=== PATIENT | male | born 1975 | race Caucasian/White ===

== ENCOUNTER 2016-07-14 23:56 | Observation (INO) ==
--- NOTE | 2016-07-15 00:20 | Emergency Department Note ---
Disposition Clinical Impression: Suicidal ideation, Auditory hallucinations, Visual hallucinations Disposition: Still a Patient Condition: Good Referrals: Teresa Powell DO [Partnered Physician] - Forms: ED Satisfaction Letter Psych HPI - General Chief Complaint: ED Psychiatric Symptoms Stated Complaint: SI Time Seen by Provider: 07/14/16 23:59 Source: patient Mode of arrival: EMS Limitations: no limitations Nursing Notes Reviewed: Yes Vital Signs Reviewed: Yes - History of Present Illness HPI Narrative: 40-year-old male presents to the ER via EMS due to suicide attempt. Pt complaint: suicidal ideation, other (Attempted suicide attempt) Onset (ago): hour(s) (10 PM) History of similar episodes: Yes Improves with: none Worsens with: none Alleged intoxication: No Associated Psychiatric Symptoms: depression, suicidal ideation, auditory hallucinations, visual hallucinations Associated symptoms: Denies: shortness of breath, nausea, vomiting Traumatic symptoms: denies traumatic injury Treatments prior to arrival: none Self harm or harm to others: admits thoughts of self harm, has plan (Took pills earlier today), denies thoughts of harming self/others, intentional overdose - Related Data Home Medications Medication Instructions Recorded Confirmed ClonazePAM [Klonopin] 1 mg PO BID 12/14/15 12/14/15 Fluticasone Propionate Nasal 1 spray NS DAILY 12/14/15 12/14/15 [Flonase] Gabapentin [Neurontin] 600 mg PO TID 12/14/15 12/14/15 Methylphenidate HCl [Ritalin] 20 mg PO TID 12/14/15 12/14/15 Metoprolol [Lopressor] 25 mg PO BID 12/14/15 12/14/15 Omeprazole [PriLOSEC] 40 mg PO DAILY 12/14/15 12/14/15 TraMADol [Ultram] 50 mg PO Q4-6H PRN 12/14/15 12/14/15 TraZODone [TraZODone] 50 mg PO HS 12/14/15 12/14/15 Ziprasidone [Geodon] 60 mg PO BID 12/14/15 12/14/15 Allergies Allergy/AdvReac Type Severity Reaction Status Date / Time No Known Allergies Allergy Verified 12/14/15 09:17 All systems ED: reviewed and negative except as stated. Constitutional: Denies: fever Cardiovascular: Denies: chest pain Respiratory: Denies: cough, dyspnea Gastrointestinal: Denies: abdominal pain, nausea, vomiting, diarrhea Neurological: Reports: headache Psychiatric: Reports: depression, suicidal thoughts, auditory hallucinations, visual hallucinations Past Medical History - Past Medical History Attestation: Yes The following information was validated with the patient. Source: patient Medical history: Reports: asthma, hypertension Surgical history: Reports: non-contributory Psychiatric history: Reports: anxiety, ADHD, bipolar, depression - Social History Smoking Status: Current every day smoker Smokeless Tobacco Status: No Alcohol use: Reports: occasionally Drug use: Reports: none Physical Exam - General Limitations: no limitations General appearance: alert, in no apparent distress - Head Head exam: atraumatic, normocephalic, normal inspection - Eye Eye exam: Present: normal appearance, EOMI, mydriasis - ENT ENT exam: normal exam - Neck Neck exam: Present: normal inspection - Chest Chest inspection: Present: normal inspection, symmetric chest wall rise - Respiratory Respiratory exam: Present: normal lung sounds bilaterally - Cardiovascular Cardiovascular exam: Present: regular rate, normal rhythm, normal heart sounds - Abdominal Exam Abdominal exam: Present: soft, Non-Tender. Absent: tenderness - Extremities Exam Extremities exam: Present: normal inspection, full ROM - Expanded Lower Extremity Exam Hip/Pelvis exam: Present: normal inspection, full ROM Upper leg exam: Present: normal inspection, full ROM Knee exam: Present: normal inspection, full ROM Lower leg exam: Present: normal inspection, full ROM Ankle exam: Present: normal inspection, full ROM Foot/toe exam: Present: normal inspection, full ROM - Neurological Exam Neurological exam: Present: alert, oriented X3, normal gait. Absent: motor sensory deficit - Psychiatric Psychiatric exam: Present: normal affect, depressed, suicidal ideation, other ( Thought blocking) - Skin Skin exam: Present: warm, intact, normal color Course Course Narrative: 40-year-old male history of bipolar who presents to the ER via EMS due to suicide attempt. Patient states that around 10 PM he intentionally ingested a handful of Klonopin and drank 7-10 shots of liquor. Patient reports a history of previous suicide attempt in the past. He states that his parents called 911. He does report having auditory and visual hallucinations. States that he has been evaluated by one [facility] in the past. He denies any coingestions. He reports continued thoughts of self-harm. No other complaints. Plan for patient his EKG, basic labs, TSH, urinalysis and urine drug screen. After medical clearance will be evaluated by [facility]. - Reevaluation(s) Reevaluation #1: Resting comfortably. No issues. Repeating ethanol level. Reevaluation #2: Repeat ethanol level of 108. Patient will be signed out to day team for repeat ethanol and evaluation by mental health professionals. Time: 05:54 Vital Signs Temperature 98 F 07/14/16 23:58 Pulse Rate 77 07/14/16 23:58 Respiratory Rate 15 07/14/16 23:58 Blood Pressure 120/82 07/14/16 23:58 O2 Sat by Pulse Oximetry 95 07/14/16 23:58 Temperature 98 F 07/14/16 23:58 Pulse Rate 83 07/15/16 05:00 Respiratory Rate 20 07/15/16 05:00 Blood Pressure 100/54 07/15/16 05:00 O2 Sat by Pulse Oximetry 96 07/15/16 05:00 Oxygen Delivery Oxygen Delivery Room Air Psych - MDM Narrative Medical decision making narrative: 40-year-old male presents to the ER via EMS due to intentional ingestion with intent to harm. Previous history of suicide attempts in the past. Reportedly took Klonopin and alcohol ingestion. Lab work here showed an initial alcohol level of 195 with repeat of 108. Will require an additional ethanol level to be checked. Will be evaluated by [facility] and anticipate admission for intentional ingestion and suicidal ideation with auditory and visual hallucinations. Signed out to day team. - Lab Data Lab results reviewed: Yes I reviewed the patient's lab results. Result diagrams: 07/15/16 00:43 07/15/16 00:25 Lab Results 07/15/16 07/15/16 07/15/16 Range/Units 00:25 00:25 00:25 WBC (4.3-11.1) K/mcL RBC (4.19-5.50) M/mcL Hgb (12.9-16.9) g/dL Hct (37.5-50.1) % MCV (83.0-100.0) fL MCH (28.0-33.3) pg MCHC (31.6-35.5) g/dL RDW (11.5-14.5) % Plt Count (140-400) K/mcL MPV (9.4-12.4) fL Immature Gran % (0-4) % Seg Neutrophils % % Lymphocytes % % Monocytes % % Eosinophils % % Basophils % % Neutrophils # (1.6-8.9) K/mcL Lymphocytes # (0.6-4.6) K/mcL Monocytes # (0.0-1.3) K/mcL Eosinophils # (0.0-0.6) K/mcL Basophils # (0.0-0.2) K/mcL Immature Plt Fraction (1.1-6.1) % Sodium 136 (136-145) mEq/L Potassium 3.9 (3.5-4.5) mEq/L Chloride 105 (98-109) mEq/L Carbon Dioxide 21 (19-29) mEq/L BUN 5 L (8-26) mg/dL Creatinine 0.68 L (0.72-1.25) mg/dL Est GFR ( Amer) > 60 (> 60) Est GFR (Non-Af Amer) > 60 (> 60) BUN/Creatinine Ratio 7 (6-26) Glucose 86 (70-99) mg/dL Calculated Osmolality 279 L (280-300) Calcium 8.4 L (8.6-10.8) mg/dL TSH 0.320 L (0.350-4.840) mcIU/mL Urine Color Yellow (Yellow) Urine Clarity Clear (Clear) Urine pH 6.0 (5.0-8.0) pH Units Ur Specific [place] 1.007 L (1.010-1.025) Urine Protein Negative (Neg-Trace) mg/dL Urine Glucose (UA) Normal (Normal) mg/dL Urine Ketones Negative (Negative) mg/dL Urine Blood Negative (Negative) Urine Nitrite Negative (Negative) Urine Bilirubin Negative (Negative) Urine Urobilinogen Normal (Normal) mg/dL Ur Leukocyte Esterase Negative (Negative) Salicylates < 5.0 L (15-30) mg/dL Urine Opiates Screen Negative (Znqkza=911) ng/mL Acetaminophen < 1.0 L (10-30) mcg/mL Ur Barbiturates Screen Negative (Mkkvpz=957) ng/mL Ur Phencyclidine Scrn Negative (Cutoff=25) ng/mL Ur Amphetamines Screen Negative (Pokidm=4949) ng/mL U Benzodiazepines Scrn Positive H (Szggcr=469) ng/mL Urine Cocaine Screen Negative (Cutoff= 300) ng/mL U Marijuana (THC) Screen Negative (Cutoff = 50) ng/mL Ethyl Alcohol 195 H (0-10) mg/dL 07/15/16 07/15/16 Range/Units 00:43 05:33 WBC 9.7 (4.3-11.1) K/mcL RBC 4.87 (4.19-5.50) M/mcL Hgb 14.6 (12.9-16.9) g/dL Hct 42.1 (37.5-50.1) % MCV 86.4 (83.0-100.0) fL MCH 30.0 (28.0-33.3) pg MCHC 34.7 (31.6-35.5) g/dL RDW 12.7 (11.5-14.5) % Plt Count 249 (140-400) K/mcL MPV 9.9 (9.4-12.4) fL Immature Gran % 0.2 (0-4) % Seg Neutrophils % 58.2 % Lymphocytes % 33.7 % Monocytes % 4.0 % Eosinophils % 3.4 % Basophils % 0.5 % Neutrophils # 5.6 (1.6-8.9) K/mcL Lymphocytes # 3.3 (0.6-4.6) K/mcL Monocytes # 0.4 (0.0-1.3) K/mcL Eosinophils # 0.3 (0.0-0.6) K/mcL Basophils # 0.1 (0.0-0.2) K/mcL Immature Plt Fraction 5.8 (1.1-6.1) % Sodium (136-145) mEq/L Potassium (3.5-4.5) mEq/L Chloride (98-109) mEq/L Carbon Dioxide (19-29) mEq/L BUN (8-26) mg/dL Creatinine (0.72-1.25) mg/dL Est GFR ( Amer) (> 60) Est GFR (Non-Af Amer) (> 60) BUN/Creatinine Ratio (6-26) Glucose (70-99) mg/dL Calculated Osmolality (280-300) Calcium (8.6-10.8) mg/dL TSH (0.350-4.840) mcIU/mL Urine Color (Yellow) Urine Clarity (Clear) Urine pH (5.0-8.0) pH Units Ur Specific [place] (1.010-1.025) Urine Protein (Neg-Trace) mg/dL Urine Glucose (UA) (Normal) mg/dL Urine Ketones (Negative) mg/dL Urine Blood (Negative) Urine Nitrite (Negative) Urine Bilirubin (Negative) Urine Urobilinogen (Normal) mg/dL Ur Leukocyte Esterase (Negative) Salicylates (15-30) mg/dL Urine Opiates Screen (Zkcdhb=447) ng/mL Acetaminophen (10-30) mcg/mL Ur Barbiturates Screen (Gmdvrk=746) ng/mL Ur Phencyclidine Scrn (Cutoff=25) ng/mL Ur Amphetamines Screen (Uqxpxp=2525) ng/mL U Benzodiazepines Scrn (Vipyds=058) ng/mL Urine Cocaine Screen (Cutoff= 300) ng/mL U Marijuana (THC) Screen (Cutoff = 50) ng/mL Ethyl Alcohol 108 H (0-10) mg/dL - EKG Data EKG attestation: Yes I reviewed and interpreted this EKG. EKG results narrative: EKG shows sinus rhythm with a rate of 74 bpm. Normal axis. MT interval 161 QRS duration [address] elevations or depressions. No acute ischemic findings. No significant changes from previous EKG dated 12/13/15. EKG shows normal: sinus rhythm, axis, intervals, QRS complexes, ST-T waves Rate: normal Rhythm: NSR Riley/QRS: normal When compared to previous EKG there are: no significant changes Interpretation: normal EKG Psychiatric Medical Clearance - Medical Clearance Checklist Medical History: No Social History Section defined Current Vitals: Last Vital Signs Temp 98 F 07/14/16 23:58 Pulse 83 07/15/16 05:00 Resp 20 07/15/16 05:00 BP 100/54 07/15/16 05:00 Pulse Ox 96 07/15/16 05:00 Psychiatric Lab Panel: Drug Levels and Toxicity 07/15/16 07/15/16 07/15/16 00:25 00:25 05:33 Urine Opiates Screen Negative Acetaminophen < 1.0 L Ur Barbiturates Screen Negative Ur Phencyclidine Scrn Negative Ur Amphetamines Screen Negative U Benzodiazepines Scrn Positive H Urine Cocaine Screen Negative U Marijuana (THC) Screen Negative Ethyl Alcohol 195 H 108 H Abnormal Labs: Abnormal lab results BUN 5 mg/dL (8-26) L 07/15/16 00:25 Creatinine 0.68 mg/dL (0.72-1.25) L 07/15/16 00:25 Calculated Osmolality 279 (280-300) L 07/15/16 00:25 Calcium 8.4 mg/dL (8.6-10.8) L 07/15/16 00:25 TSH 0.320 mcIU/mL (0.350-4.840) L 07/15/16 00:25 Ur Specific [place] 1.007 (1.010-1.025) L 07/15/16 00:25 Salicylates < 5.0 mg/dL (15-30) L 07/15/16 00:25 Acetaminophen < 1.0 mcg/mL (10-30) L 07/15/16 00:25 U Benzodiazepines Scrn Positive ng/mL (Epqyif=940) H 07/15/16 00:25 Ethyl Alcohol 108 mg/dL (0-10) H 07/15/16 05:33 Statement of Medical Clearance: I have evaluated the patient, reviewed diagnostic information, and certify that the patient's medical condition is sufficiently stable that transfer to the psychiatric unit does not pose a significant risk of deterioration. Reza - Reza Situation: Demographics, MOA Background: Presenting Complaint, Relevant PMH, Meds, & Allergies Assessment: Vital Signs, Course and respsone to treatment, Exam Concerns, Patient/Family Expectation, Pertinant Lab Results, Outstanding Labs Recommendation: Barrier(s) to disposition, Recommendation based on pending studies, treatments, or consults Reza Report Given to: Day shift team Reza Repor Time: 06:52
--- NOTE | 2016-07-15 00:34 | Emergency Department Note ---
START Narrative - START START: examined this patient and my medical decision-making was reviewed with the TICKET MACHINE OPERATOR /PA/Advanced Practice Nurse/Resident Physician. I agree with the documented findings, disposition and treatment plan as described except to the extent set forth below. ED attending note: Patient seen with emergency medicine resident Dr. Whitney. Please see a copy of his note for details of the H&P, evaluation, management and disposition of this patient. We independently had [id number] contact with the patient Briefly: 4-year-old male history of bipolar disorder presents via EMS for suicidal ideations. Patient said he drank 7-8 alcoholic cocktails and took "a handful of Klonopin tablets. States he wanted to harm himself. Patient's examination is neurologically nonfocal. Prolonged medical clearance and evaluation by mental health services. Disposition pending. Patient stable.
[2016-07-15 00:43] LABS: Bilirubin,Urine Negative (Negative); Blood,Urine Negative (Negative); Clarity,Urine Clear (Clear); Color,Urine Yellow (Yellow); Glucose,Urine (UA) Normal (Normal); Ketones,Urine Negative (Negative); Leukocyte Esterase,Urine Negative (Negative); Nitrite,Urine Negative (Negative); Protein,Urine Negative (Neg-Trace); Specific Gravity,Urine 1.007 (1.010-1.025); Urobilinogen,Urine Normal (Normal)
[2016-07-15 00:49] LABS: Amphetamine Screen,Urine Negative ng/mL (Cutoff=1000); Barbiturate Screen,Urine Negative ng/mL (Cutoff=200); Benzodiazepines Screen,Urine Positive ng/mL (Cutoff=200); Cannabinoid Screen,Urine Negative ng/mL (Cutoff = 50); Cocaine Screen,Urine Negative ng/mL (Cutoff= 300); Opiate Screen,Urine Negative ng/mL (Cutoff=300); Phencyclidine Screen,Urine Negative ng/mL (Cutoff=25)
[2016-07-15 00:50] LABS: Basophils # 0.1 K/mcL (0.0-0.2); Basophils % 0.5 %; Eosinophils # 0.3 K/mcL (0.0-0.6); Eosinophils % 3.4 %; Hematocrit 42.1 % (37.5-50.1); Hemoglobin 14.6 g/dL (12.9-16.9); Immature Granulocytes % 0.2 % (0-4); Immature Platelets 5.8 % (1.1-6.1); Lymphocytes # 3.3 K/mcL (0.6-4.6); Lymphocytes % 33.7 %; Mean Corpuscular HGB Conc 34.7 g/dL (31.6-35.5); Mean Corpuscular Volume 86.4 fL (83.0-100.0); Mean Platelet Volume 9.9 fL (9.4-12.4); Monocytes # 0.4 K/mcL (0.0-1.3); Neutrophils # 5.6 K/mcL (1.6-8.9); Platelet Count 249 K/mcL (140-400); Red Blood Count 4.87 M/mcL (4.19-5.50); Red Cell Distribution Width 12.7 % (11.5-14.5); Segmented Neutrophils % 58.2 %
[2016-07-15 00:56] LABS: BUN/Creatinine Ratio 7 (6-26); Calcium 8.4 mg/dL (8.6-10.8); Carbon Dioxide 21 mEq/L (19-29); Chloride 105 mEq/L (98-109); Ethanol 195 mg/dL (0-10); Glucose 86 mg/dL (70-99); Osmolality,Calculated 279 (280-300); Potassium 3.9 mEq/L (3.5-4.5); Sodium 136 mEq/L (136-145); eGFR For African Americans > 60 (> 60); eGFR For Non-African Americans > 60 (> 60)
[2016-07-15 00:59] LABS: Blood Urea Nitrogen 5 mg/dL (8-26)
[2016-07-15 01:00] LABS: Salicylate < 5.0 mg/dL (15-30)
[2016-07-15 01:14] LABS: Acetaminophen < 1.0 mcg/mL (10-30)
--- NOTE | 2016-07-15 07:40 | Emergency Department Note ---
Disposition Clinical Impression: Suicidal ideation, Auditory hallucinations, Visual hallucinations Disposition: Admitted As Inpatient Condition: Good Referrals: Teresa Powell DO [Partnered Physician] - Forms: ED Satisfaction Letter Time of Disposition: 10:21 Psych HPI - General Chief Complaint: ED Psychiatric Symptoms Stated Complaint: SI/ETOH/OD on Klonopin/depression Time Seen by Provider: 07/14/16 23:59 Source: patient Mode of arrival: EMS Nursing Notes Reviewed: Yes Vital Signs Reviewed: Yes - History of Present Illness Improves with: none Worsens with: none Associated symptoms: Denies: shortness of breath, nausea, vomiting Treatments prior to arrival: none - Related Data Home Medications Medication Instructions Recorded Confirmed ClonazePAM [Klonopin] 1 mg PO BID 12/14/15 07/15/16 Fluticasone Propionate Nasal 1 spray NS DAILY 12/14/15 07/15/16 [Flonase] Gabapentin [Neurontin] 600 mg PO TID 12/14/15 07/15/16 Methylphenidate HCl [Ritalin] 20 mg PO TID 12/14/15 07/15/16 Metoprolol [Lopressor] 25 mg PO BID 12/14/15 07/15/16 Omeprazole [PriLOSEC] 40 mg PO DAILY 12/14/15 07/15/16 TraZODone [TraZODone] 50 mg PO HS 12/14/15 07/15/16 Ziprasidone [Geodon] 60 mg PO BID 12/14/15 07/15/16 Albuterol Sulfate [Proair Hfa] 2 puff IH Q6H PRN 07/15/16 07/15/16 Diazepam [Valium] 5 mg PO HS PRN 07/15/16 07/15/16 Fluticasone/Salmeterol [Advair 1 puff IH BID 07/15/16 07/15/16 250-50 Diskus] Allergies Allergy/AdvReac Type Severity Reaction Status Date / Time No Known Allergies Allergy Verified 12/14/15 09:17 Constitutional: Denies: fever Cardiovascular: Denies: chest pain Respiratory: Denies: cough, dyspnea Gastrointestinal: Denies: abdominal pain, nausea, vomiting, diarrhea Neurological: Reports: headache Psychiatric: Reports: depression, suicidal thoughts, auditory hallucinations, visual hallucinations Past Medical History - Past Medical History Medical history: Reports: asthma, hypertension Surgical history: Reports: non-contributory Psychiatric history: Reports: anxiety, ADHD, bipolar, depression - Social History Smoking Status: Current every day smoker Smokeless Tobacco Status: No Alcohol use: Reports: occasionally Drug use: Reports: none Physical Exam - General Limitations: no limitations General appearance: alert, in no apparent distress Course - Reevaluation(s) Reevaluation #1: Patient signed out by hydropress operator pending resting comfortably at this time with no concerns. Time: 07:39 - Consultations Consultation #1: PAtient admitted to Time: 10:21 Vital Signs Temperature 98 F 07/14/16 23:58 Pulse Rate 77 07/14/16 23:58 Respiratory Rate 15 07/14/16 23:58 Blood Pressure 120/82 07/14/16 23:58 O2 Sat by Pulse Oximetry 95 07/14/16 23:58 Temperature 98 F 07/14/16 23:58 Pulse Rate 83 07/15/16 05:00 Respiratory Rate 20 07/15/16 05:00 Blood Pressure 100/54 07/15/16 05:00 O2 Sat by Pulse Oximetry 96 07/15/16 05:00 Oxygen Delivery Oxygen Delivery Room Air Psych - Lab Data Result diagrams: 07/15/16 00:43 07/15/16 00:25 Lab Results 07/15/16 07/15/16 07/15/16 Range/Units 00:25 00:25 00:25 WBC (4.3-11.1) K/mcL RBC (4.19-5.50) M/mcL Hgb (12.9-16.9) g/dL Hct (37.5-50.1) % MCV (83.0-100.0) fL MCH (28.0-33.3) pg MCHC (31.6-35.5) g/dL RDW (11.5-14.5) % Plt Count (140-400) K/mcL MPV (9.4-12.4) fL Immature Gran % (0-4) % Seg Neutrophils % % Lymphocytes % % Monocytes % % Eosinophils % % Basophils % % Neutrophils # (1.6-8.9) K/mcL Lymphocytes # (0.6-4.6) K/mcL Monocytes # (0.0-1.3) K/mcL Eosinophils # (0.0-0.6) K/mcL Basophils # (0.0-0.2) K/mcL Immature Plt Fraction (1.1-6.1) % Sodium 136 (136-145) mEq/L Potassium 3.9 (3.5-4.5) mEq/L Chloride 105 (98-109) mEq/L Carbon Dioxide 21 (19-29) mEq/L BUN 5 L (8-26) mg/dL Creatinine 0.68 L (0.72-1.25) mg/dL Est GFR ( Amer) > 60 (> 60) Est GFR (Non-Af Amer) > 60 (> 60) BUN/Creatinine Ratio 7 (6-26) Glucose 86 (70-99) mg/dL Calculated Osmolality 279 L (280-300) Calcium 8.4 L (8.6-10.8) mg/dL TSH 0.320 L (0.350-4.840) mcIU/mL Urine Color Yellow (Yellow) Urine Clarity Clear (Clear) Urine pH 6.0 (5.0-8.0) pH Units Ur Specific [place] 1.007 L (1.010-1.025) Urine Protein Negative (Neg-Trace) mg/dL Urine Glucose (UA) Normal (Normal) mg/dL Urine Ketones Negative (Negative) mg/dL Urine Blood Negative (Negative) Urine Nitrite Negative (Negative) Urine Bilirubin Negative (Negative) Urine Urobilinogen Normal (Normal) mg/dL Ur Leukocyte Esterase Negative (Negative) Salicylates < 5.0 L (15-30) mg/dL Urine Opiates Screen Negative (Izeyii=689) ng/mL Acetaminophen < 1.0 L (10-30) mcg/mL Ur Barbiturates Screen Negative (Celkmj=086) ng/mL Ur Phencyclidine Scrn Negative (Cutoff=25) ng/mL Ur Amphetamines Screen Negative (Nnhnkf=2693) ng/mL U Benzodiazepines Scrn Positive H (Mupmlb=216) ng/mL Urine Cocaine Screen Negative (Cutoff= 300) ng/mL U Marijuana (THC) Screen Negative (Cutoff = 50) ng/mL Ethyl Alcohol 195 H (0-10) mg/dL 07/15/16 07/15/16 07/15/16 Range/Units 00:43 05:33 08:04 WBC 9.7 (4.3-11.1) K/mcL RBC 4.87 (4.19-5.50) M/mcL Hgb 14.6 (12.9-16.9) g/dL Hct 42.1 (37.5-50.1) % MCV 86.4 (83.0-100.0) fL MCH 30.0 (28.0-33.3) pg MCHC 34.7 (31.6-35.5) g/dL RDW 12.7 (11.5-14.5) % Plt Count 249 (140-400) K/mcL MPV 9.9 (9.4-12.4) fL Immature Gran % 0.2 (0-4) % Seg Neutrophils % 58.2 % Lymphocytes % 33.7 % Monocytes % 4.0 % Eosinophils % 3.4 % Basophils % 0.5 % Neutrophils # 5.6 (1.6-8.9) K/mcL Lymphocytes # 3.3 (0.6-4.6) K/mcL Monocytes # 0.4 (0.0-1.3) K/mcL Eosinophils # 0.3 (0.0-0.6) K/mcL Basophils # 0.1 (0.0-0.2) K/mcL Immature Plt Fraction 5.8 (1.1-6.1) % Sodium (136-145) mEq/L Potassium (3.5-4.5) mEq/L Chloride (98-109) mEq/L Carbon Dioxide (19-29) mEq/L BUN (8-26) mg/dL Creatinine (0.72-1.25) mg/dL Est GFR ( Amer) (> 60) Est GFR (Non-Af Amer) (> 60) BUN/Creatinine Ratio (6-26) Glucose (70-99) mg/dL Calculated Osmolality (280-300) Calcium (8.6-10.8) mg/dL TSH (0.350-4.840) mcIU/mL Urine Color (Yellow) Urine Clarity (Clear) Urine pH (5.0-8.0) pH Units Ur Specific [place] (1.010-1.025) Urine Protein (Neg-Trace) mg/dL Urine Glucose (UA) (Normal) mg/dL Urine Ketones (Negative) mg/dL Urine Blood (Negative) Urine Nitrite (Negative) Urine Bilirubin (Negative) Urine Urobilinogen (Normal) mg/dL Ur Leukocyte Esterase (Negative) Salicylates (15-30) mg/dL Urine Opiates Screen (Oarrba=895) ng/mL Acetaminophen (10-30) mcg/mL Ur Barbiturates Screen (Bojiyh=915) ng/mL Ur Phencyclidine Scrn (Cutoff=25) ng/mL Ur Amphetamines Screen (Qxlrsm=0111) ng/mL U Benzodiazepines Scrn (Uyrmav=716) ng/mL Urine Cocaine Screen (Cutoff= 300) ng/mL U Marijuana (THC) Screen (Cutoff = 50) ng/mL Ethyl Alcohol 108 H 65 H (0-10) mg/dL Psychiatric Medical Clearance - Medical Clearance Checklist Medical History: No Social History Section defined Current Vitals: Last Vital Signs Temp 98 F 07/14/16 23:58 Pulse 83 07/15/16 05:00 Resp 20 07/15/16 05:00 BP 100/54 07/15/16 05:00 Pulse Ox 96 07/15/16 05:00 Psychiatric Lab Panel: Drug Levels and Toxicity 07/15/16 07/15/16 07/15/16 00:25 00:25 05:33 Urine Opiates Screen Negative Acetaminophen < 1.0 L Ur Barbiturates Screen Negative Ur Phencyclidine Scrn Negative Ur Amphetamines Screen Negative U Benzodiazepines Scrn Positive H Urine Cocaine Screen Negative U Marijuana (THC) Screen Negative Ethyl Alcohol 195 H 108 H 07/15/16 08:04 Urine Opiates Screen Acetaminophen Ur Barbiturates Screen Ur Phencyclidine Scrn Ur Amphetamines Screen U Benzodiazepines Scrn Urine Cocaine Screen U Marijuana (THC) Screen Ethyl Alcohol 65 H Abnormal Labs: Abnormal lab results BUN 5 mg/dL (8-26) L 07/15/16 00:25 Creatinine 0.68 mg/dL (0.72-1.25) L 07/15/16 00:25 Calculated Osmolality 279 (280-300) L 07/15/16 00:25 Calcium 8.4 mg/dL (8.6-10.8) L 07/15/16 00:25 TSH 0.320 mcIU/mL (0.350-4.840) L 07/15/16 00:25 Ur Specific [place] 1.007 (1.010-1.025) L 07/15/16 00:25 Salicylates < 5.0 mg/dL (15-30) L 07/15/16 00:25 Acetaminophen < 1.0 mcg/mL (10-30) L 07/15/16 00:25 U Benzodiazepines Scrn Positive ng/mL (Cwwcff=610) H 07/15/16 00:25 Ethyl Alcohol 65 mg/dL (0-10) H 07/15/16 08:04 Statement of Medical Clearance: I have evaluated the patient, reviewed diagnostic information, and certify that the patient's medical condition is sufficiently stable that transfer to the psychiatric unit does not pose a significant risk of deterioration.
[2016-07-15] MEDS ORDERED: Mag Hydrox/Al Hydrox/Simeth 30 ML UDC PO PRN (13:27)
[2016-07-15] MEDS ORDERED: Ibuprofen 400 MG TABLET PO PRN (13:27)
[2016-07-15] MEDS ORDERED: MOM Conc 10 ML UD.LIQ PO PRN (13:27)
--- NOTE | 2016-07-15 13:44 | Psychiatry History & Physical ---
Date of Encounter: 07/15/16 Time of Encounter: 13:20 History of Present Illness Patient Stated Chief Complaint: "I took pills to try and kill myself." Medicare Admission Attestation: For traditional Medicare patients the provided hospital inpatient services are reasonable and necessary and in the case of services not specified as inpatient -only under 42 CFR 419.22 (n), that they are appropriately provided as inpatient services in accordance 42 CFR 412.3. For Critical Access Hospital the patient may reasonably be expected to be discharged or transferred to a hospital within 96 hours after admission to the Critical Access Hospital. Admitted From: Emergency Dept Plans for Post Hospital Care: Home History of Present Illness: Mr. Perdue is a 40 year old male with a history of mood disorder, anxiety, reported history of ADHD as well as a history of personality disorder who presented to the hospital last night after taking too many Klonopin as well as drinking alcohol. Patient admits that he was very intoxicated and that he did at that time intend to kill himself. He now regrets his decision but does report that he has multiple previous suicide attempts other similar nature. He was admitted to [facility] for psychiatric stabilization. Patient reports that he had an argument with a friend and was also just feeling very depressed. He could not give any other specific stressors to this provider. He is unsure if he feels that his medications are working or not. He denies daily drinking. He seems somewhat guarded when discussing his attempt. He denies auditory or visual hallucinations at the time of the interview and does not appear to be responding to internal stimuli. He denies sessions, delusions, paranoia. He denies decreased need for sleep, impulsivity, grandiosity. Patient states that he does not have a current psychiatrist but that he has been given enough medications to get to November when hopefully there will be a new psychiatrist starting at [facility]. Patient reports that he takes Klonopin as well as a stimulant for ADHD symptoms. Patient denies any current SI but did report to ER staff on arrival that he was still suicidal. Past Med Surg Social Fam HX - Past Medical History Medical history: asthma, hypertension - Past Psychiatric History Psychiatric history: Reports: prior suicide attempt, previous psychiatric hospitalization Past psychiatric history details: Patient has multiple previous hospitalizations. Most recently he was on 1A in 2010. He has admissions to other hospitals as well. Past records reviewed and patient has a history of bipolar disorder, anxiety, ADHD, personality disorder. Family psychiatric history: Yes Family Psychiatric History Details: Patient's mom has depression. Family History of Suicide: Completed (Patient reports he had an uncle who completed suicide.) - Past Surgical History Surgical History: non-contributory - Social History Smoking Status: Current every day smoker Smokeless Tobacco Status: No Alcohol use: occasionally Drug use: none Current living situation: With Family - Family History Father Living Status: Hx Family Cancer: Yes (Lung) Mother Living Status: Still Living Hx Family Respiratory Disorders: Yes (Astma, COPD, Emphysema) Grandmother Hx Family Respiratory Disorders: Yes (Emphysema) Medications & Allergies ClonazePAM [Klonopin] 1 mg PO BID 12/14/15 [History] Fluticasone Propionate Nasal [Flonase] 1 spray NS DAILY 12/14/15 [History] Gabapentin [Neurontin] 600 mg PO TID 12/14/15 [History] Methylphenidate HCl [Ritalin] 20 mg PO TID 12/14/15 [History] Metoprolol [Lopressor] 25 mg PO BID 12/14/15 [History] Omeprazole [PriLOSEC] 40 mg PO DAILY 12/14/15 [History] TraZODone [TraZODone] 50 mg PO HS 12/14/15 [History] Ziprasidone [Geodon] 60 mg PO BID 12/14/15 [History] Albuterol Sulfate [Proair Hfa] 2 puff IH Q6H PRN 07/15/16 [History] Diazepam [Valium] 5 mg PO HS PRN 07/15/16 [History] Fluticasone/Salmeterol [Advair 250-50 Diskus] 1 puff IH BID 07/15/16 [History] Allergies No Known Allergies Allergy (Verified 12/14/15 09:17) Review of Systems Constitutional: Denies: fever, chills, weakness, weight change Eyes: Denies: eye pain, vision change Ears, Nose, Throat: Denies: ear pain, throat pain, dental pain, hearing loss, congestion Cardiovascular: Denies: chest pain, palpitations, dyspnea on exertion Respiratory: Denies: cough, dyspnea, wheezes Gastrointestinal: Denies: abdominal pain, nausea, vomiting, diarrhea, constipation Genitourinary male: Denies: urgency, dysuria, frequency, genital lesions Genitourinary female: Denies: urgency, dysuria, frequency, abnormal menses, dyspareunia Musculoskeletal: Denies: joint swelling, joint pain Integumentary: Denies: rash, lesions, pruritus Neurological: Denies: headache, weakness, numbness, memory loss Psychiatric: Reports: depression, anxiety, abnormal sleep pattern, suicidal ideation, difficulty concentrating, irritability. Denies: auditory hallucinations, visual hallucinations Endocrine: Denies: fatigue, heat or cold intolerance Hematologic/Lymphatic: Denies: easy bruising, lymphadenopathy Allergic/Immunologic: Denies: urticaria, itchy eyes Mental Status Exam Patient orientation: Yes Person, Yes Time, Yes Place Level of alertness: Alert Behavior: calm, guarded Psychomotor activity: Normal Eye contact: Diverts Contact Mood description: Depressed Affect description: constricted, dysphoric Speech pattern: Normal rate, Normal rhythm, Normal tone Speech volume: Normal, Loud, Soft/Quiet Thought content: Yes Intact, No Suicidal ideation, No Homicidal ideation Perceptual disturbances: No Auditory hallucinations, No Visual hallucinations Attention span: Capable of Focused Attention Memory description: Grossly Intact Patient reliability: Reliable Historian Intelligence estimate: Average Judgment: Limited Insight: Partial Results - Vital Signs Vital signs: Temp Pulse Resp BP Pulse Ox 98 F 79 20 104/62 97 07/14/16 23:58 07/15/16 10:57 07/15/16 11:05 07/15/16 11:05 07/15/16 10:57 - Labs Labs: Laboratory Last Values WBC 9.7 K/mcL (4.3-11.1) 07/15/16 00:43 RBC 4.87 M/mcL (4.19-5.50) 07/15/16 00:43 Hgb 14.6 g/dL (12.9-16.9) 07/15/16 00:43 Hct 42.1 % (37.5-50.1) 07/15/16 00:43 MCV 86.4 fL (83.0-100.0) 07/15/16 00:43 MCH 30.0 pg (28.0-33.3) 07/15/16 00:43 MCHC 34.7 g/dL (31.6-35.5) 07/15/16 00:43 RDW 12.7 % (11.5-14.5) 07/15/16 00:43 Plt Count 249 K/mcL (140-400) 07/15/16 00:43 MPV 9.9 fL (9.4-12.4) 07/15/16 00:43 Immature Gran % 0.2 % (0-4) 07/15/16 00:43 Seg Neutrophils % 58.2 % 07/15/16 00:43 Lymphocytes % 33.7 % 07/15/16 00:43 Monocytes % 4.0 % 07/15/16 00:43 Eosinophils % 3.4 % 07/15/16 00:43 Basophils % 0.5 % 07/15/16 00:43 Neutrophils # 5.6 K/mcL (1.6-8.9) 07/15/16 00:43 Lymphocytes # 3.3 K/mcL (0.6-4.6) 07/15/16 00:43 Monocytes # 0.4 K/mcL (0.0-1.3) 07/15/16 00:43 Eosinophils # 0.3 K/mcL (0.0-0.6) 07/15/16 00:43 Basophils # 0.1 K/mcL (0.0-0.2) 07/15/16 00:43 Immature Plt Fraction 5.8 % (1.1-6.1) 07/15/16 00:43 Sodium 136 mEq/L (136-145) 07/15/16 00:25 Potassium 3.9 mEq/L (3.5-4.5) 07/15/16 00:25 Chloride 105 mEq/L (98-109) 07/15/16 00:25 Carbon Dioxide 21 mEq/L (19-29) 07/15/16 00:25 BUN 5 mg/dL (8-26) L 07/15/16 00:25 Creatinine 0.68 mg/dL (0.72-1.25) L 07/15/16 00:25 Est GFR ( Amer) > 60 (> 60) 07/15/16 00:25 Est GFR (Non-Af Amer) > 60 (> 60) 07/15/16 00:25 BUN/Creatinine Ratio 7 (6-26) 07/15/16 00:25 Glucose 86 mg/dL (70-99) 07/15/16 00:25 Calculated Osmolality 279 (280-300) L 07/15/16 00:25 Calcium 8.4 mg/dL (8.6-10.8) L 07/15/16 00:25 TSH 0.320 mcIU/mL (0.350-4.840) L 07/15/16 00:25 Urine Color Yellow (Yellow) 07/15/16 00:25 Urine Clarity Clear (Clear) 07/15/16 00:25 Urine pH 6.0 pH Units (5.0-8.0) 07/15/16 00:25 Ur Specific [place] 1.007 (1.010-1.025) L 07/15/16 00:25 Urine Protein Negative mg/dL (Neg-Trace) 07/15/16 00:25 Urine Glucose (UA) Normal mg/dL (Normal) 07/15/16 00:25 Urine Ketones Negative mg/dL (Negative) 07/15/16 00:25 Urine Blood Negative (Negative) 07/15/16 00:25 Urine Nitrite Negative (Negative) 07/15/16 00:25 Urine Bilirubin Negative (Negative) 07/15/16 00:25 Urine Urobilinogen Normal mg/dL (Normal) 07/15/16 00:25 Ur Leukocyte Esterase Negative (Negative) 07/15/16 00:25 Salicylates < 5.0 mg/dL (15-30) L 07/15/16 00:25 Urine Opiates Screen Negative ng/mL (Bqjyvy=657) 07/15/16 00:25 Acetaminophen < 1.0 mcg/mL (10-30) L 07/15/16 00:25 Ur Barbiturates Screen Negative ng/mL (Mlmtiu=216) 07/15/16 00:25 Ur Phencyclidine Scrn Negative ng/mL (Cutoff=25) 07/15/16 00:25 Ur Amphetamines Screen Negative ng/mL (Ahfqzk=1753) 07/15/16 00:25 U Benzodiazepines Scrn Positive ng/mL (Jxzaux=938) H 07/15/16 00:25 Urine Cocaine Screen Negative ng/mL (Cutoff= 300) 07/15/16 00:25 U Marijuana (THC) Screen Negative ng/mL (Cutoff = 50) 07/15/16 00:25 Ethyl Alcohol 65 mg/dL (0-10) H 07/15/16 08:04 Assessment and Plan (1) Bipolar disorder, unspecified Current visit: Yes Status: Acute Plan: Admit inpatient for safety and stabilization, Close observation, Suicide Precautions per unit protocol, Encourage participation in unit milieu, Group Therapy, Monitor sleep, Monitor appetite Additional Plan: We will restart patient's home medications including Geodon and venlafaxine. Encouraged patient to consider titrating meds but he is hesitant to do so right now. Given that he has multiple previous suicide attempts and previous psychiatric hospitalizations he will require stabilization prior to discharge. Risks, benefits, side effects, alternatives discussed w/pt: Yes Patient agreeable to treatment: Yes Plans for Post Hospital Care: Home Estimated Length of Stay (Days): 3 Qualifiers: Active/Remission status: currently active Current bipolar episode type: depressed Current episode severity: moderate Qualified Code(s): F31.32 - Bipolar disorder, current episode depressed, moderate (2) Anxiety Current visit: Yes Status: Acute Plan: Admit inpatient for safety and stabilization, Close observation, Suicide Precautions per unit protocol, Encourage participation in unit milieu, Group Therapy, Monitor sleep, Monitor appetite Additional Plan: Patient has a history of anxiety symptoms currently taking Klonopin and Valium. He has not seen his outpatient psychiatrist in some time. We discussed that patient should not be taking Klonopin and Valium and drinking at the same time. Patient verbalized understanding. He denies daily alcohol use. Risks, benefits, side effects, alternatives discussed w/pt: Yes Patient agreeable to treatment: Yes Plans for Post Hospital Care: Home (3) ADHD (attention deficit hyperactivity disorder) Current visit: Yes Status: Acute Plan: Close observation Additional Plan: We will admit patient hold on restarting stimulant meds as he is on anxiety medications to and has recently been drinking. Concern for possible abuse and also that this may be exacerbating his underlying psychiatric issues. Risks, benefits, side effects, alternatives discussed w/pt: Yes Patient agreeable to treatment: Yes Qualifiers: Attention deficit-hyperactivity disorder type: unspecified Qualified Code(s ): F90.9 - Attention-deficit hyperactivity disorder, unspecified type (4) Personality disorder Current visit: Yes Status: Acute Plan: Admit inpatient for safety and stabilization, Close observation, Suicide Precautions per unit protocol, Encourage participation in unit milieu, Group Therapy, Monitor sleep, Monitor appetite Additional Plan: Patient does have a history of poor coping strategies and multiple suicide attempts. We will encourage group attendance. (5) Alcohol abuse Current visit: Yes Status: Acute Plan: Admit inpatient for safety and stabilization, Close observation, Group Therapy Additional Plan: Patient admits to drinking too much prior to coming to the hospital. He was intoxicated on arrival. At this point patient denies daily use. We will monitor her vitals and encourage patient to discontinue alcohol use as this led to a suicide attempt. Risks, benefits, side effects, alternatives discussed w/pt: Yes Patient agreeable to treatment: Yes Plans for Post Hospital Care: Home
[2016-07-15] MEDS: Gabapentin 300 MG CAPSULE PO SCH ×2 (15:00→20:29)
[2016-07-15] MEDS: Venlafaxine XR (24 HR) 75 MG CAP.ER.24H PO SCH (15:00)
[2016-07-15] MEDS: Ziprasidone 20 MG CAPSULE PO SCH ×2 (15:19→20:30)
[2016-07-15] MEDS: clonazePAM 1 MG TABLET PO SCH (20:30)
[2016-07-15] MEDS: traZODone 50 MG TABLET PO PRN (20:30)
[2016-07-15] MEDS: Budesonide/Formoterol 80/4.5 MDI IH SCH (20:32)
[2016-07-15] MEDS: Nicotine 21 MG PATCH.TD24 TD SCH (20:34)
[2016-07-15] MEDS ORDERED: Ziprasidone 20 MG CAPSULE PO SCH (21:00)
[2016-07-16] MEDS: Nicotine 21 MG PATCH.TD24 TD SCH (08:49)
[2016-07-16] MEDS: Venlafaxine XR (24 HR) 75 MG CAP.ER.24H PO SCH (08:50)
[2016-07-16] MEDS: Ziprasidone 20 MG CAPSULE PO SCH ×2 (08:50→21:36)
[2016-07-16] MEDS: clonazePAM 1 MG TABLET PO SCH ×2 (08:51→21:36)
[2016-07-16] MEDS: Gabapentin 300 MG CAPSULE PO SCH ×3 (08:51→21:36)
[2016-07-16] MEDS: Fluticasone Propionate Nasal 50 MCG/SPRAY BOTTLE NS SCH (08:52)
[2016-07-16] MEDS: Budesonide/Formoterol 80/4.5 MDI IH SCH ×2 (09:38→21:37)
--- NOTE | 2016-07-16 13:06 | Psychiatry Progress Note ---
Date of Encounter: 07/16/16 Time of Encounter: 12:30 Subjective Interval history: Patient is seen for follow-up. He reports records and nursing notes. Patient is denying any suicidal ideation he, he is in denial of his alcohol dependence. He is medication dependent on benzodiazepine and stimulant without supportive evidence or indication for his medication this managed by PCP. Patient is unemployed and is not going to school. Patient was not motivated to participate in any job training or school. There are no reports of withdrawal symptoms. Review of Systems Psychiatric: Reports: depression, anxiety, abnormal sleep pattern, difficulty concentrating, irritability. Denies: auditory hallucinations, visual hallucinations Objective: Exam Patient orientation: Yes Person, Yes Time, Yes Place Level of alertness: Alert Patient appearance: Appropriate, Well Groomed Behavior: calm, guarded Psychomotor activity: Normal Eye contact: Diverts Contact Mood description: Depressed Affect description: constricted, dysphoric Speech pattern: Normal rate, Normal rhythm, Normal tone Speech volume: Normal, Loud, Soft/Quiet Thought process: Linear, Goal Oriented Thought content: Yes Intact, No Suicidal ideation, No Homicidal ideation Perceptual disturbances: No Auditory hallucinations, No Visual hallucinations Judgment: Limited Insight: Partial Results - Vital Signs Vital Signs: Temp Pulse Resp BP Pulse Ox 98.6 F 90 12 118/81 97 07/16/16 08:55 07/16/16 08:55 07/16/16 08:55 07/16/16 08:55 07/15/16 10:57 Assessment and Plan (1) Bipolar disorder, unspecified Current visit: Yes Status: Acute Plan: Continue hospitalization, Close observation, Suicide Precautions per unit protocol, Encourage participation in unit milieu, Group Therapy, Monitor sleep, Monitor appetite Risks, benefits, side effects, alternatives discussed w/pt: Yes Patient agreeable to treatment: Yes Qualifiers: Active/Remission status: currently active Current bipolar episode type: depressed Current episode severity: moderate Qualified Code(s): F31.32 - Bipolar disorder, current episode depressed, moderate (2) Alcohol abuse Current visit: Yes Status: Acute Plan: Continue hospitalization, Close observation, Suicide Precautions per unit protocol, Encourage participation in unit milieu, Group Therapy, Monitor sleep, Monitor appetite Risks, benefits, side effects, alternatives discussed w/pt: Yes Patient agreeable to treatment: Yes Consult Discharge Plan - Plan Referrals: NO,PCP [Primary Care Provider] -
--- NOTE | 2016-07-16 15:02 | Electrocardiograph Report ---
[place] [address] Test Date: 2016-07-15 Pat Name: Kaiden Perdue Department: 105 Room: [facility] Gender: M Lead Sharepoint Developer: : 1975 Requested By: Glenny Maharaj Order Number: [id number] Reading MD: Hamilton Garcia Measurements Intervals [place] Rate: 74 P: 46 AK: 161 QRS: 60 QRSD: 112 T: 63 QT: 377 QTc: 405 Interpretive Statements SINUS RHYTHM Electronically Signed On 07-16-2016 15:01:31 EST by Hamilton Garcia
[2016-07-16] MEDS ORDERED: hydrOXYzine pamoate 25 MG CAPSULE PO PRN (17:39)
[2016-07-16] MEDS: traZODone 50 MG TABLET PO PRN (22:59)
[2016-07-17 08:25] VITALS: BP 105/76
[2016-07-17] MEDS: Ziprasidone 20 MG CAPSULE PO SCH (09:44)
[2016-07-17] MEDS: Venlafaxine XR (24 HR) 75 MG CAP.ER.24H PO SCH (09:45)
[2016-07-17] MEDS: Gabapentin 300 MG CAPSULE PO SCH ×2 (09:45→14:22)
[2016-07-17] MEDS: clonazePAM 1 MG TABLET PO SCH (09:45)
[2016-07-17] MEDS: Budesonide/Formoterol 80/4.5 MDI IH SCH (09:46)
[2016-07-17] MEDS: Nicotine 21 MG PATCH.TD24 TD SCH (09:47)
[2016-07-17] MEDS: Fluticasone Propionate Nasal 50 MCG/SPRAY BOTTLE NS SCH (09:47)
--- NOTE | 2016-07-17 14:20 | Discharge Summary ---
Date of Encounter: 07/17/16 Time of Encounter: 14:00 Diagnosis - Discharge Diagnosis (1) Bipolar disorder, unspecified Status: Acute Qualifiers: Active/Remission status: currently active Current bipolar episode type: depressed Current episode severity: moderate Qualified Code(s): F31.32 - Bipolar disorder, current episode depressed, moderate (2) Alcohol abuse Status: Acute Medications - Discharge Medications Prescriptions: Venlafaxine XR (24 HR) [Effexor XR] 75 mg PO DAILY #30 cap.er.24h ClonazePAM [Klonopin] 1 mg PO BID 12/14/15 [History] Fluticasone Propionate Nasal [Flonase] 1 spray NS DAILY 12/14/15 [History] Gabapentin [Neurontin] 600 mg PO TID 12/14/15 [History] Methylphenidate HCl [Ritalin] 20 mg PO TID 12/14/15 [History] Metoprolol [Lopressor] 25 mg PO BID 12/14/15 [History] Omeprazole [PriLOSEC] 40 mg PO DAILY 12/14/15 [History] TraZODone 50 mg PO HS 12/14/15 [History] Ziprasidone [Geodon] 60 mg PO BID 12/14/15 [History] Albuterol Sulfate [Proair Hfa] 2 puff IH Q6H PRN 07/15/16 [History] Diazepam [Valium] 5 mg PO HS PRN 07/15/16 [History] Fluticasone/Salmeterol [Advair 250-50 Diskus] 1 puff IH BID 07/15/16 [History] Venlafaxine XR (24 HR) [Effexor XR] 75 mg PO DAILY #30 cap.er.24h 07/17/16 [Rx] Allergies No Known Allergies Allergy (Verified 12/14/15 09:17) Provider Date of admission: 07/15/16 11:03 Primary care physician: PCP NO Discharging clinician: Derrick Jones Assessment and Plan - Patient/Caregiver Discharge Instructions Activity: resume usual activities as tolerated Diet: regular diet - Follow up Plan Follow up with: NO,PCP [Primary Care Provider] - Functional capacity at discharge: independent ambulation Overall status at discharge: Stable Disposition: Home, Self-Care Hospital Course Hospital course: Mr. Perdue is a 40 year old male admitted from the emergency department suicidal ideation and alcohol intoxication. For details of admission please see H&P On the units patient was restarted on his medication, Effexor XR was added as an antidepressant and patient participated in groups and activities. He declined making any medication changes until he sees his psychiatrist. Prior to discharge he was medically stable sleep and appetite were stable and denies suicidal ideation. delinquency prevention social worker discussed discharge plans with him and with his parents and assured safety procedures. - Time Spent with Patient Total time spent providing and/or coordinating discharge services: Less than 30 minutes Quality - Multiple Antipsychotics Patient discharged on 2 or more antipsychotic medications: No Procedures - Procedures Procedures: Medication Management, Crisis Stabilization, Supportive Therapy, Group Therapy, Psychoeducational Therapy Mental Status Exam - Mental Status Exam Patient orientation: Yes Person, Yes Time, Yes Place Level of alertness: Alert Patient appearance: Appropriate, Unkempt Behavior: calm, guarded Psychomotor activity: Normal Eye contact: Diverts Contact Mood description: Euthymic/stable, Anxious Affect description: congruent with mood, euthymic, dysphoric Speech pattern: Normal rate, Normal rhythm, Normal tone Speech Volume: Normal, Loud, Soft/Quiet Thought process: Linear, Goal Oriented Thought Content: Yes Intact, No Suicidal ideation, No Homicidal ideation Perceptual Disturbances: No Auditory hallucinations, No Visual hallucinations Judgment: Limited Insight: Partial
== END 2016-07-17 15:10 | disposition home or self-care (01) ==
LOC: EMEROO 23:56 → INTOOBSV 07-15 11:03 → SUATTDRO 07-15 11:03 → 1ANU 07-15 11:03
PROVIDERS: ADMIT Student in an Organized Health Care Education/Training Program; ATTEND Psychiatry & Neurology Psychiatry

== ENCOUNTER 2019-03-03 23:38 | Inpatient (IN) ==
[2019-03-04 00:35] LABS: Basophils # 0.1 K/mcL (0.0-0.2); Basophils % 0.7 %; Eosinophils # 0.3 K/mcL (0.0-0.6); Eosinophils % 3.9 %; Hematocrit 39.1 % (37.5-50.1); Hemoglobin 13.6 g/dL (12.9-16.9); Immature Granulocytes % 0.1 % (0-4); Lymphocytes # 2.5 K/mcL (0.6-4.6); Lymphocytes % 29.1 %; Mean Corpuscular HGB Conc 34.8 g/dL (31.6-35.5); Mean Corpuscular Hemoglobin 30.6 pg (28.0-33.3); Mean Corpuscular Volume 88.1 fL (83.0-100.0); Mean Platelet Volume 10.1 fL (9.4-12.4); Monocytes # 0.8 K/mcL (0.0-1.3); Monocytes % 9.5 %; Neutrophils # 4.8 K/mcL (1.6-8.9); Platelet Count 284 K/mcL (140-400); Red Blood Count 4.44 M/mcL (4.19-5.50); Red Cell Distribution Width 13.4 % (11.5-14.5); Segmented Neutrophils % 56.7 %; White Blood Count 8.4 K/mcL (4.3-11.1)
[2019-03-04 00:54] LABS: Acetaminophen < 10 mcg/mL (10-20); BUN/Creatinine Ratio 18 (6-26); Blood Urea Nitrogen 17 mg/dL (6-20); Calcium 9.3 mg/dL (8.6-10.3); Carbon Dioxide 22 mEq/L (23-29); Chloride 110 mEq/L (98-107); Ethanol < 10 mg/dL (Less than 10); Glucose 120 mg/dL (70-105); Osmolality,Calculated 293 (280-300); Potassium 3.4 mEq/L (3.5-5.1); Salicylate < 2.5 mg/dL (15.0-30.0); Sodium 140 mEq/L (136-145); eGFR For African Americans > 60 (> 60); eGFR For Non-African Americans > 60 (> 60)
[2019-03-04 02:00] LABS: Bilirubin,Urine Small (Negative); Blood,Urine Negative (Negative); Clarity,Urine Cloudy (Clear); Color,Urine Dark Yellow (Yellow); Glucose,Urine (UA) Normal (Normal); Ketones,Urine Trace mg/dL (Negative); Leukocyte Esterase,Urine Negative (Negative); Nitrite,Urine Negative (Negative); Protein,Urine 30 mg/dL (Neg-Trace); Specific Gravity,Urine > 1.030 (1.010-1.025); Urobilinogen,Urine Normal (Normal)
[2019-03-04 02:01] LABS: Bacteria,Urine None Seen per hpf (None-Few); Hyaline Casts,Urine None Seen per lpf (None-Few); Squamous Epithelial Cell,Urine Many per lpf (None-Few)
[2019-03-04 02:10] LABS: Amphetamine Screen,Urine Positive ng/mL (Cutoff=1000); Barbiturate Screen,Urine Negative ng/mL (Cutoff=200); Benzodiazepines Screen,Urine Positive ng/mL (Cutoff=200); Cannabinoid Screen,Urine Negative ng/mL (Cutoff = 50); Cocaine Screen,Urine Negative ng/mL (Cutoff= 300); Opiate Screen,Urine Negative ng/mL (Cutoff=300); Phencyclidine Screen,Urine Negative ng/mL (Cutoff=25)
[2019-03-04 02:13] LABS: Calcium Oxalate Crystals,Urine Present
[2019-03-04 02:19] LABS: RBC,Urine 0-3 per hpf (0-3)
[2019-03-04] MEDS ORDERED: hydrOXYzine pamoate 25 MG CAPSULE PO PRN (05:25)
[2019-03-04] MEDS ORDERED: Mag Hydrox/Al Hydrox/Simeth 30 ML UDC PO PRN (05:25)
[2019-03-04] MEDS ORDERED: *HR* LORazepam 1 MG TABLET PO PRN (05:25)
[2019-03-04] MEDS ORDERED: traZODone 50 MG TABLET PO PRN (05:25)
[2019-03-04] MEDS ORDERED: Haloperidol Lactate 5 MG/ML VIAL IM PRN (05:25)
[2019-03-04] MEDS ORDERED: MOM Conc 10 ML UD.LIQ PO PRN (05:25)
[2019-03-04] MEDS ORDERED: Acetaminophen 325 MG TABLET PO PRN (05:25)
[2019-03-04] MEDS ORDERED: *HR* LORazepam 2 MG/ML VIAL IM PRN (05:25)
[2019-03-04] MEDS ORDERED: Ibuprofen 600 MG TABLET PO PRN (10:01)
[2019-03-04] MEDS: Gabapentin 300 MG CAPSULE PO SCH ×3 (14:05→21:41)
[2019-03-04] MEDS: Methylphenidate HCl 10 MG TABLET PO SCH ×3 (14:05→21:41)
[2019-03-04] MEDS: Tiotropium 18 MCG inhalation IH SCH (14:05)
[2019-03-04] MEDS: clonazePAM 1 MG TABLET PO SCH ×2 (14:06→21:40)
[2019-03-04] MEDS: Venlafaxine XR (24 HR) 150 MG CAP.ER.24H PO SCH (14:06)
[2019-03-04] MEDS: Ziprasidone 20 MG CAPSULE PO SCH ×2 (14:06→21:39)
[2019-03-04] MEDS: Venlafaxine XR (24 HR) 75 MG CAP.ER.24H PO SCH (14:06)
[2019-03-04] MEDS: Nicotine 21 MG PATCH.TD24 TD SCH (14:06)
[2019-03-04 14:41] LABS: Chol/HDL Ratio 4.2 (0-4.9)
[2019-03-04 14:44] LABS: Thyroid Stimulating Hormone 0.135 mcIU/mL (0.340-5.600)
[2019-03-04 14:56] LABS: Estimated Average Glucose 111 mg/dl
[2019-03-05 09:59] VITALS: BP 83/58
[2019-03-05] MEDS: Venlafaxine XR (24 HR) 150 MG CAP.ER.24H PO SCH (11:08)
[2019-03-05] MEDS: Venlafaxine XR (24 HR) 75 MG CAP.ER.24H PO SCH (11:08)
[2019-03-05] MEDS: clonazePAM 1 MG TABLET PO SCH (11:09)
[2019-03-05] MEDS: Gabapentin 300 MG CAPSULE PO SCH (11:10)
[2019-03-05] MEDS: Ziprasidone 20 MG CAPSULE PO SCH (11:10)
[2019-03-05] MEDS: Methylphenidate HCl 10 MG TABLET PO SCH (11:10)
[2019-03-05] MEDS: Nicotine 21 MG PATCH.TD24 TD SCH (11:11)
[2019-03-05] MEDS: Tiotropium 18 MCG inhalation IH SCH (11:11)
== END 2019-03-05 12:00 | disposition home or self-care (01) | DRG 885 ==
LOC: EMEROOARM 23:38 → 1ANU 03-04 05:03
PROVIDERS: ADMIT Psychiatry & Neurology Psychiatry; ATTEND Psychiatry & Neurology Psychiatry

== ENCOUNTER 2019-03-24 01:51 | Inpatient (IN) ==
[2019-03-24 02:50] LABS: Basophils # 0.1 K/mcL (0.0-0.2); Basophils % 0.7 %; Eosinophils # 0.8 K/mcL (0.0-0.6); Eosinophils % 12.2 %; Hematocrit 34.7 % (37.5-50.1); Hemoglobin 12.1 g/dL (12.9-16.9); Immature Granulocytes % 0.1 % (0-4); Lymphocytes # 2.2 K/mcL (0.6-4.6); Lymphocytes % 32.8 %; Mean Corpuscular HGB Conc 34.9 g/dL (31.6-35.5); Mean Corpuscular Hemoglobin 30.9 pg (28.0-33.3); Mean Corpuscular Volume 88.5 fL (83.0-100.0); Mean Platelet Volume 10.2 fL (9.4-12.4); Monocytes # 0.4 K/mcL (0.0-1.3); Monocytes % 6.2 %; Neutrophils # 3.2 K/mcL (1.6-8.9); Platelet Count 248 K/mcL (140-400); Red Blood Count 3.92 M/mcL (4.19-5.50); Red Cell Distribution Width 13.8 % (11.5-14.5); White Blood Count 6.7 K/mcL (4.3-11.1)
[2019-03-24 03:13] LABS: Acetaminophen < 10 mcg/mL (10-20); BUN/Creatinine Ratio 15 (6-26); Blood Urea Nitrogen 11 mg/dL (6-20); Calcium 8.4 mg/dL (8.6-10.3); Carbon Dioxide 25 mEq/L (23-29); Chloride 110 mEq/L (98-107); Ethanol < 10 mg/dL (Less than 10); Glucose 114 mg/dL (70-105); Osmolality,Calculated 290 (280-300); Potassium 3.5 mEq/L (3.5-5.1); Salicylate < 2.5 mg/dL (15.0-30.0); Sodium 140 mEq/L (136-145); eGFR For African Americans > 60 (> 60); eGFR For Non-African Americans > 60 (> 60)
[2019-03-24 03:15] LABS: Bilirubin,Urine Negative (Negative); Blood,Urine Negative (Negative); Clarity,Urine Turbid (Clear); Color,Urine Yellow (Yellow); Glucose,Urine (UA) Normal (Normal); Ketones,Urine Negative (Negative); Leukocyte Esterase,Urine Negative (Negative); Nitrite,Urine Negative (Negative); PH,Urine 6.5 pH Units (5.0-8.0); Protein,Urine Negative (Neg-Trace); Specific Gravity,Urine 1.024 (1.010-1.025); Urobilinogen,Urine Normal (Normal)
[2019-03-24 03:18] LABS: Bacteria,Urine None Seen per hpf (None-Few); Hyaline Casts,Urine None Seen per lpf (None-Few); RBC,Urine 0-3 per hpf (0-3); Squamous Epithelial Cell,Urine Many per lpf (None-Few)
[2019-03-24 03:30] LABS: Amphetamine Screen,Urine Positive ng/mL (Cutoff=1000); Barbiturate Screen,Urine Negative ng/mL (Cutoff=200); Benzodiazepines Screen,Urine Negative ng/mL (Cutoff=200); Cannabinoid Screen,Urine Positive ng/mL (Cutoff = 50); Cocaine Screen,Urine Negative ng/mL (Cutoff= 300); Opiate Screen,Urine Negative ng/mL (Cutoff=300); Phencyclidine Screen,Urine Negative ng/mL (Cutoff=25)
[2019-03-24 03:36] LABS: Amorphous Sediment,Urine Many (Few); Calcium Oxalate Crystals,Urine Present
[2019-03-24] MEDS ORDERED: Haloperidol Lactate 5 MG/ML VIAL IM PRN (09:32)
[2019-03-24] MEDS ORDERED: Mag Hydrox/Al Hydrox/Simeth 30 ML UDC PO PRN (09:32)
[2019-03-24] MEDS ORDERED: MOM Conc 10 ML UD.LIQ PO PRN (09:32)
[2019-03-24] MEDS ORDERED: *HR* LORazepam 1 MG TABLET PO PRN (09:32)
[2019-03-24] MEDS ORDERED: *HR* LORazepam 2 MG/ML VIAL IM PRN (09:32)
[2019-03-24] MEDS ORDERED: traZODone 50 MG TABLET PO PRN (09:32)
[2019-03-24] MEDS ORDERED: Ibuprofen 400 MG TABLET PO PRN (09:32)
[2019-03-24] MEDS ORDERED: hydrOXYzine pamoate 25 MG CAPSULE PO PRN (09:32)
[2019-03-24] MEDS ORDERED: Ibuprofen 600 MG TABLET PO PRN (13:21)
[2019-03-24] MEDS: Ziprasidone 20 MG CAPSULE PO SCH ×2 (15:07→20:28)
[2019-03-24] MEDS: Venlafaxine XR (24 HR) 150 MG CAP.ER.24H PO SCH (15:07)
[2019-03-24] MEDS: Venlafaxine XR (24 HR) 75 MG CAP.ER.24H PO SCH (15:07)
[2019-03-24] MEDS: Gabapentin 300 MG CAPSULE PO SCH ×2 (17:05→20:28)
[2019-03-24] MEDS: Methylphenidate HCl 10 MG TABLET PO SCH ×2 (17:05→20:28)
[2019-03-24] MEDS: clonazePAM 1 MG TABLET PO SCH ×2 (17:05→20:28)
[2019-03-24] MEDS: Nicotine 21 MG PATCH.TD24 TD SCH (17:39)
[2019-03-25 07:43] LABS: Chol/HDL Ratio 3.8 (0-4.9)
[2019-03-25 07:57] LABS: Estimated Average Glucose 111 mg/dl
[2019-03-25] MEDS: Ziprasidone 20 MG CAPSULE PO SCH ×2 (08:58→20:32)
[2019-03-25] MEDS: Venlafaxine XR (24 HR) 150 MG CAP.ER.24H PO SCH (08:59)
[2019-03-25] MEDS: Venlafaxine XR (24 HR) 75 MG CAP.ER.24H PO SCH (08:59)
[2019-03-25] MEDS: Nicotine 21 MG PATCH.TD24 TD SCH (08:59)
[2019-03-25] MEDS: clonazePAM 1 MG TABLET PO PRN ×2 (09:39→23:57)
[2019-03-25] MEDS: Methylphenidate HCl 10 MG TABLET PO SCH ×2 (09:39→13:15)
[2019-03-25] MEDS: Gabapentin 300 MG CAPSULE PO SCH ×2 (09:39→20:34)
[2019-03-26] MEDS: Ziprasidone 20 MG CAPSULE PO SCH (09:04)
[2019-03-26] MEDS: Nicotine 21 MG PATCH.TD24 TD SCH (09:04)
[2019-03-26] MEDS: Methylphenidate HCl 10 MG TABLET PO SCH (09:05)
[2019-03-26] MEDS: Venlafaxine XR (24 HR) 150 MG CAP.ER.24H PO SCH (09:05)
[2019-03-26] MEDS: Venlafaxine XR (24 HR) 75 MG CAP.ER.24H PO SCH (09:06)
[2019-03-26] MEDS: Gabapentin 300 MG CAPSULE PO SCH (09:06)
[2019-03-26] MEDS: clonazePAM 1 MG TABLET PO PRN (09:09)
[2019-03-26 09:40] VITALS: BP 120/79
== END 2019-03-26 09:50 | disposition home or self-care (01) | DRG 885 ==
LOC: EMEROOARM 01:51 → 1ANU 09:27
PROVIDERS: ADMIT Psychiatry & Neurology Psychiatry; ATTEND Psychiatry & Neurology Psychiatry

== ENCOUNTER 2019-04-01 06:09 | Inpatient (IN) ==
[2019-04-01 06:53] LABS: Basophils # 0.1 K/mcL (0.0-0.2); Basophils % 0.7 %; Eosinophils # 0.4 K/mcL (0.0-0.6); Eosinophils % 4.4 %; Hemoglobin 14.5 g/dL (12.9-16.9); Immature Granulocytes % 0.2 % (0-4); Lymphocytes # 2.2 K/mcL (0.6-4.6); Lymphocytes % 25.6 %; Mean Corpuscular HGB Conc 35.4 g/dL (31.6-35.5); Mean Corpuscular Volume 87.8 fL (83.0-100.0); Mean Platelet Volume 9.9 fL (9.4-12.4); Monocytes # 0.7 K/mcL (0.0-1.3); Monocytes % 8.4 %; Neutrophils # 5.1 K/mcL (1.6-8.9); Platelet Count 308 K/mcL (140-400); Red Blood Count 4.67 M/mcL (4.19-5.50); Red Cell Distribution Width 13.7 % (11.5-14.5); Segmented Neutrophils % 60.7 %; White Blood Count 8.5 K/mcL (4.3-11.1)
[2019-04-01 07:07] LABS: Acetaminophen < 10 mcg/mL (10-20); BUN/Creatinine Ratio 13 (6-26); Blood Urea Nitrogen 13 mg/dL (6-20); Calcium 9.5 mg/dL (8.6-10.3); Carbon Dioxide 23 mEq/L (23-29); Chloride 103 mEq/L (98-107); Ethanol < 10 mg/dL (Less than 10); Glucose 97 mg/dL (70-105); Osmolality,Calculated 286 (280-300); Potassium 3.8 mEq/L (3.5-5.1); Salicylate < 2.5 mg/dL (15.0-30.0); Sodium 138 mEq/L (136-145); eGFR For African Americans > 60 (> 60); eGFR For Non-African Americans > 60 (> 60)
[2019-04-01] MEDS ORDERED: Nicotine 14 MG PATCH.TD24 TD SCH (07:45)
[2019-04-01 07:47] LABS: Bilirubin,Urine Small (Negative); Blood,Urine Negative (Negative); Clarity,Urine Turbid (Clear); Color,Urine Dark Yellow (Yellow); Glucose,Urine (UA) Normal (Normal); Ketones,Urine 15 mg/dL (Negative); Leukocyte Esterase,Urine Negative (Negative); Nitrite,Urine Negative (Negative); PH,Urine 5.5 pH Units (5.0-8.0); Protein,Urine 100 mg/dL (Neg-Trace); Specific Gravity,Urine 1.029 (1.010-1.025); Urobilinogen,Urine Normal (Normal)
[2019-04-01 07:50] LABS: Bacteria,Urine None Seen per hpf (None-Few); RBC,Urine 15-30 per hpf (0-3); Squamous Epithelial Cell,Urine Many per lpf (None-Few)
[2019-04-01 08:28] LABS: Amphetamine Screen,Urine Positive ng/mL (Cutoff=1000); Barbiturate Screen,Urine Negative ng/mL (Cutoff=200); Benzodiazepines Screen,Urine Positive ng/mL (Cutoff=200); Cannabinoid Screen,Urine Negative ng/mL (Cutoff = 50); Cocaine Screen,Urine Negative ng/mL (Cutoff= 300); Opiate Screen,Urine Negative ng/mL (Cutoff=300); Phencyclidine Screen,Urine Negative ng/mL (Cutoff=25)
[2019-04-01 08:35] LABS: Hyaline Casts,Urine Moderate per lpf (None-Few); Mucus,Urine Few (Few)
[2019-04-01] MEDS ORDERED: *HR* LORazepam 2 MG/ML VIAL IM PRN (13:07)
[2019-04-01] MEDS ORDERED: Haloperidol Lactate 5 MG/ML VIAL IM PRN (13:07)
[2019-04-01] MEDS ORDERED: *HR* LORazepam 1 MG TABLET PO PRN (13:07)
[2019-04-01] MEDS ORDERED: hydrOXYzine pamoate 25 MG CAPSULE PO PRN (13:07)
[2019-04-01] MEDS ORDERED: Mag Hydrox/Al Hydrox/Simeth 30 ML UDC PO PRN (13:07)
[2019-04-01] MEDS ORDERED: Acetaminophen 325 MG TABLET PO PRN (13:07)
[2019-04-01] MEDS ORDERED: MOM Conc 10 ML UD.LIQ PO PRN (13:07)
[2019-04-01] MEDS ORDERED: clonazePAM 1 MG TABLET PO PRN (15:07)
[2019-04-01] MEDS: Gabapentin 300 MG CAPSULE PO SCH (22:14)
[2019-04-01] MEDS: traZODone 50 MG TABLET PO PRN (22:15)
[2019-04-02] MEDS: Methylphenidate HCl 10 MG TABLET PO SCH ×2 (09:38→12:15)
[2019-04-02] MEDS: Nicotine 21 MG PATCH.TD24 TD SCH (09:39)
[2019-04-02] MEDS: Venlafaxine XR (24 HR) 75 MG CAP.ER.24H PO SCH (09:39)
[2019-04-02] MEDS: Venlafaxine XR (24 HR) 150 MG CAP.ER.24H PO SCH (09:39)
[2019-04-02] MEDS: Gabapentin 300 MG CAPSULE PO SCH ×2 (09:39→20:35)
[2019-04-02] MEDS: clonazePAM 1 MG TABLET PO SCH ×2 (12:15→20:35)
[2019-04-02] MEDS: traZODone 50 MG TABLET PO PRN (20:35)
[2019-04-03] MEDS: Methylphenidate HCl 10 MG TABLET PO SCH (08:38)
[2019-04-03] MEDS: Gabapentin 300 MG CAPSULE PO SCH (08:38)
[2019-04-03] MEDS: Nicotine 21 MG PATCH.TD24 TD SCH (08:39)
[2019-04-03] MEDS: clonazePAM 1 MG TABLET PO SCH (08:39)
[2019-04-03] MEDS: Venlafaxine XR (24 HR) 150 MG CAP.ER.24H PO SCH (08:39)
[2019-04-03] MEDS: Venlafaxine XR (24 HR) 75 MG CAP.ER.24H PO SCH (08:39)
[2019-04-03 10:36] VITALS: BP 102/70
== END 2019-04-03 10:50 | disposition home or self-care (01) | DRG 885 ==
LOC: EMEROOARM 06:09 → 1ANU 06:09
PROVIDERS: ADMIT Psychiatry & Neurology Psychiatry; ATTEND Psychiatry & Neurology Psychiatry

== ENCOUNTER 2020-01-14 06:58 | Inpatient (IN) ==
[2020-01-14] MEDS ORDERED: *HR* HYDROmorphone (PF) 1 MG/ML SYRINGE IM ONE (07:20)
[2020-01-14] MEDS ORDERED: *HR* FentaNYL (PF) 100 MCG/2 ML VIAL IVP ONE (07:38)
[2020-01-14 08:29] LABS: BUN/Creatinine Ratio 11 (6-26); Blood Urea Nitrogen 9 mg/dL (6-20); Calcium 8.8 mg/dL (8.6-10.3); Carbon Dioxide 28 mEq/L (23-29); Chloride 102 mEq/L (98-107); Glucose 94 mg/dL (70-105); Osmolality,Calculated 280 (280-300); Potassium 3.9 mEq/L (3.5-5.1); Sodium 136 mEq/L (136-145); eGFR For African Americans > 60 (> 60); eGFR For Non-African Americans > 60 (> 60)
[2020-01-14 08:33] LABS: Basophils % 0.2 %; Eosinophils # 0.3 K/mcL (0.0-0.6); Eosinophils % 4.2 %; Hematocrit 38.2 % (37.5-50.1); Hemoglobin 12.7 g/dL (12.9-16.9); Immature Granulocytes % 0.4 % (0-4); Lymphocytes % 24.4 %; Mean Corpuscular HGB Conc 33.2 g/dL (31.6-35.5); Mean Corpuscular Hemoglobin 29.7 pg (28.0-33.3); Mean Corpuscular Volume 89.5 fL (83.0-100.0); Mean Platelet Volume 8.7 fL (9.4-12.4); Monocytes # 0.4 K/mcL (0.0-1.3); Monocytes % 5.3 %; Neutrophils # 5.3 K/mcL (1.6-8.9); Platelet Count 297 K/mcL (140-400); Red Blood Count 4.27 M/mcL (4.19-5.50); Red Cell Distribution Width 14.5 % (11.5-14.5); Segmented Neutrophils % 65.5 %; White Blood Count 8.1 K/mcL (4.3-11.1)
[2020-01-14 08:42] LABS: Bilirubin,Urine Negative (Negative); Blood,Urine Negative (Negative); Clarity,Urine Clear (Clear); Color,Urine Yellow (Yellow); Glucose,Urine (UA) Normal (Normal); Ketones,Urine Negative (Negative); Leukocyte Esterase,Urine Negative (Negative); Nitrite,Urine Negative (Negative); Protein,Urine Trace mg/dL (Neg-Trace); Specific Gravity,Urine 1.027 (1.010-1.025)
[2020-01-14 09:27] LABS: Amphetamine Screen,Urine Negative ng/mL (Cutoff=1000); Barbiturate Screen,Urine Negative ng/mL (Cutoff=200); Benzodiazepines Screen,Urine Negative ng/mL (Cutoff=200); Cannabinoid Screen,Urine Negative ng/mL (Cutoff = 50); Cocaine Screen,Urine Negative ng/mL (Cutoff= 300); Opiate Screen,Urine Negative ng/mL (Cutoff=300); Phencyclidine Screen,Urine Negative ng/mL (Cutoff=25)
[2020-01-14] MEDS ORDERED: Naloxone 0.4 MG/ML INJ IVP PRN (09:43)
[2020-01-14] MEDS ORDERED: Ondansetron 4 MG/2 ML VIAL IVP PRN (09:50)
[2020-01-14] MEDS ORDERED: Acetaminophen 325 MG TABLET PO PRN (09:50)
[2020-01-14] MEDS: *HR* OxyCODONE Immed Rel 5 MG TABLET PO PRN ×2 (10:56→18:16)
[2020-01-14] MEDS ORDERED: hydrOXYzine pamoate 25 MG CAPSULE PO PRN (16:32)
[2020-01-14] MEDS ORDERED: traZODone 50 MG TABLET PO PRN (16:32)
[2020-01-14] MEDS: *HR* HYDROcodone/Acet 5/325 mg TABLET PO PRN ×2 (16:34→22:56)
[2020-01-14] MEDS: *HR* Heparin 5,000 UNIT/ML VIAL SQ SCH (16:35)
[2020-01-14] MEDS ORDERED: VENLAFAXINE HCL 150 MG PO SCH (16:45)
[2020-01-14] MEDS: tiZANidine 4 MG TABLET PO SCH ×2 (18:16→23:32)
[2020-01-14] MEDS: Budesonide/Formoterol 80/4.5 1 PUFF INH IH SCH (20:19)
[2020-01-14] MEDS: Gabapentin 400 MG CAPSULE PO SCH (20:45)
[2020-01-14] MEDS: clonazePAM 1 MG TABLET PO SCH (20:45)
[2020-01-14] MEDS: Ziprasidone 80 MG CAPSULE PO SCH (20:45)
[2020-01-14] MEDS ORDERED: Nicotine 14 MG PATCH.TD24 TD SCH (23:30)
[2020-01-15] MEDS: *HR* OxyCODONE Immed Rel 5 MG TABLET PO PRN ×2 (02:55→19:46)
[2020-01-15] MEDS ORDERED: *HR* HYDROmorphone 2 MG TABLET PO ONE (04:23)
[2020-01-15] MEDS: tiZANidine 4 MG TABLET PO SCH ×2 (05:57→12:12)
[2020-01-15] MEDS: *HR* Heparin 5,000 UNIT/ML VIAL SQ SCH (05:58)
[2020-01-15 06:03] LABS: Basophils % 0.3 %; Eosinophils # 0.3 K/mcL (0.0-0.6); Eosinophils % 4.2 %; Hemoglobin 12.7 g/dL (12.9-16.9); Immature Granulocytes % 0.3 % (0-4); Lymphocytes # 1.7 K/mcL (0.6-4.6); Lymphocytes % 22.5 %; Mean Corpuscular HGB Conc 33.4 g/dL (31.6-35.5); Mean Corpuscular Hemoglobin 29.6 pg (28.0-33.3); Mean Corpuscular Volume 88.6 fL (83.0-100.0); Mean Platelet Volume 8.7 fL (9.4-12.4); Monocytes # 0.4 K/mcL (0.0-1.3); Neutrophils # 4.9 K/mcL (1.6-8.9); Platelet Count 321 K/mcL (140-400); Red Blood Count 4.29 M/mcL (4.19-5.50); Red Cell Distribution Width 14.7 % (11.5-14.5); Segmented Neutrophils % 66.7 %; White Blood Count 7.3 K/mcL (4.3-11.1)
[2020-01-15 06:13] LABS: BUN/Creatinine Ratio 16 (6-26); Blood Urea Nitrogen 15 mg/dL (6-20); Calcium 9.5 mg/dL (8.6-10.3); Carbon Dioxide 27 mEq/L (23-29); Chloride 108 mEq/L (98-107); Glucose 105 mg/dL (70-105); Magnesium 1.8 mg/dL (1.6-2.6); Osmolality,Calculated 293 (280-300); Potassium 4.1 mEq/L (3.5-5.1); Sodium 141 mEq/L (136-145); eGFR For African Americans > 60 (> 60); eGFR For Non-African Americans > 60 (> 60)
[2020-01-15] MEDS: clonazePAM 1 MG TABLET PO SCH ×2 (07:46→20:45)
[2020-01-15] MEDS: Ziprasidone 80 MG CAPSULE PO SCH ×2 (07:46→20:42)
[2020-01-15] MEDS: *HR* HYDROcodone/Acet 5/325 mg TABLET PO PRN (07:46)
[2020-01-15] MEDS: Gabapentin 400 MG CAPSULE PO SCH ×2 (07:46→20:44)
[2020-01-15] MEDS: Budesonide/Formoterol 80/4.5 1 PUFF INH IH SCH (07:51)
[2020-01-15] MEDS ORDERED: Venlafaxine XR (24 HR) 75 MG CAP.ER.24H PO SCH (09:00)
[2020-01-15] MEDS ORDERED: (Atomoxetine Hcl [Strattera] 60 MG) PO SCH (09:00)
[2020-01-15] MEDS ORDERED: Morphine Sulfate 2 MG/ML SYRINGE IVP PRN ×3 (09:38→17:59)
[2020-01-15] MEDS ORDERED: Morphine Sulfate 2 MG/ML SYRINGE IVP ONE (11:52)
[2020-01-15] MEDS ORDERED: Bacitracin 50,000 UNIT, Polymyxin B Sulfate 500,000 UNIT, Sodium Chloride IRRigation 1,... IR ONE (12:00)
[2020-01-15] MEDS ORDERED: Ipratropium/Albuterol Neb 3 ML IH PRN (12:15)
[2020-01-15] MEDS ORDERED: *HR* Midazolam HCl 2 MG/2 ML VIAL ONE ×2 (12:40→13:38)
[2020-01-15] MEDS ORDERED: Lidocaine -MPF 2% 2 ML VIAL ONE ×2 (12:41→13:38)
[2020-01-15] MEDS ORDERED: *HR* Rocuronium Bromide 50 MG/5 ML VIAL ONE ×2 (12:42→13:38)
[2020-01-15] MEDS ORDERED: Ondansetron 4 MG/2 ML VIAL ONE ×2 (12:43→13:38)
[2020-01-15] MEDS ORDERED: Dexamethasone 4 MG/ML VIAL ONE ×2 (12:43→13:38)
[2020-01-15] MEDS ORDERED: *HR* FentaNYL (PF) 100 MCG/2 ML VIAL ONE ×4 (12:45→15:32)
[2020-01-15] MEDS ORDERED: *HR* Propofol 200 MG/20 ML VIAL IVP ONE ×2 (12:45→13:38)
[2020-01-15] MEDS ORDERED: *HR* Succinylcholine 200 MG/10 ML VIAL IVP ONE (12:45)
[2020-01-15] MEDS ORDERED: Lidocaine -MPF 4% 5 ML AMPUL ONE (12:52)
[2020-01-15] MEDS ORDERED: Lidocaine HCL 4 ML Topical Solution (Laryng-O-Jet Kit Sterile Pak) TP ONE (13:38)
[2020-01-15 14:10] LABS: Prothrombin Time 11.3 Seconds (9.4-12.1)
[2020-01-15] MEDS ORDERED: Ondansetron 4 MG/2 ML VIAL IVP ONE (14:12)
[2020-01-15] MEDS ORDERED: *HR* OxyCODONE Immed Rel 5 MG TABLET PO PRN (14:12)
[2020-01-15] MEDS ORDERED: *HR* HYDROmorphone PF 0.5 MG/0.5 ML SYRINGE IVP PRN (14:12)
[2020-01-15] MEDS ORDERED: *HR* HYDROMORPHONE 2 MG/ML VIAL ONE (14:48)
[2020-01-15] MEDS ORDERED: *HR* PHENYLEPHRINE 1,000 MCG/10 ML SYRINGE IVP ONE (15:00)
[2020-01-15] MEDS ORDERED: tiZANidine 4 MG TABLET PO PRN (15:05)
[2020-01-15] MEDS ORDERED: Ringers Solution, Lactated 1,000 ML IVC SCH (16:46)
[2020-01-15] MEDS ORDERED: Ibuprofen 400 MG TABLET PO PRN (16:46)
[2020-01-15] MEDS ORDERED: Ondansetron 4 MG/2 ML VIAL IVP PRN (16:46)
[2020-01-15] MEDS ORDERED: Naloxone 0.4 MG/ML INJ IVP PRN (16:46)
[2020-01-15] MEDS ORDERED: *HR* HYDROcodone/Acet 5/325 mg TABLET PO PRN (16:46)
[2020-01-15] MEDS ORDERED: Celecoxib 200 MG CAPSULE PO PRN (16:46)
[2020-01-15] MEDS: Nicotine 14 MG PATCH.TD24 TD SCH (20:42)
[2020-01-16 02:24] LABS: Basophils % 0.1 %; Hemoglobin 12.3 g/dL (12.9-16.9); Immature Granulocytes % 0.3 % (0-4); Lymphocytes # 0.6 K/mcL (0.6-4.6); Lymphocytes % 4.5 %; Mean Corpuscular HGB Conc 33.2 g/dL (31.6-35.5); Mean Corpuscular Hemoglobin 30.4 pg (28.0-33.3); Mean Corpuscular Volume 91.4 fL (83.0-100.0); Mean Platelet Volume 9.2 fL (9.4-12.4); Monocytes # 0.1 K/mcL (0.0-1.3); Neutrophils # 11.6 K/mcL (1.6-8.9); Platelet Count 302 K/mcL (140-400); Red Blood Count 4.05 M/mcL (4.19-5.50); Red Cell Distribution Width 14.9 % (11.5-14.5); Segmented Neutrophils % 94.1 %
[2020-01-16 02:25] LABS: White Blood Count 12.3 K/mcL (4.3-11.1)
[2020-01-16 02:44] LABS: BUN/Creatinine Ratio 19 (6-26); Blood Urea Nitrogen 16 mg/dL (6-20); Calcium 9.1 mg/dL (8.6-10.3); Carbon Dioxide 24 mEq/L (23-29); Chloride 105 mEq/L (98-107); Glucose 217 mg/dL (70-105); Magnesium 1.6 mg/dL (1.6-2.6); Osmolality,Calculated 296 (280-300); Potassium 4.1 mEq/L (3.5-5.1); Sodium 139 mEq/L (136-145); eGFR For African Americans > 60 (> 60); eGFR For Non-African Americans > 60 (> 60)
[2020-01-16] MEDS: *HR* OxyCODONE Immed Rel 5 MG TABLET PO PRN ×2 (04:57→09:04)
[2020-01-16] MEDS: clonazePAM 1 MG TABLET PO SCH (08:47)
[2020-01-16] MEDS: Nicotine 14 MG PATCH.TD24 TD SCH (08:48)
[2020-01-16] MEDS: Gabapentin 400 MG CAPSULE PO SCH (08:48)
[2020-01-16] MEDS: Ziprasidone 80 MG CAPSULE PO SCH (08:48)
[2020-01-16] MEDS ORDERED: Venlafaxine XR (24 HR) 75 MG CAP.ER.24H PO SCH (09:00)
[2020-01-16 11:30] VITALS: BP 130/92
[2020-01-16] MEDS ORDERED: traZODone 50 MG TABLET PO PRN (21:00)
== END 2020-01-16 12:18 | disposition home or self-care (01) | DRG 519 ==
LOC: EMEROOARM 06:58 → 3NENU 06:58 → SUATTDRO 09:27 → 3NENU 10:09
PROVIDERS: ADMIT Internal Medicine; ATTEND Pharmacist

== ENCOUNTER 2020-04-30 10:01 | Inpatient (IN) ==
[2020-04-30 10:49] LABS: Bilirubin,Urine Negative (Negative); Blood,Urine Negative (Negative); Clarity,Urine Clear (Clear); Color,Urine Yellow (Yellow); Glucose,Urine (UA) Normal (Normal); Ketones,Urine 60 mg/dL (Negative); Leukocyte Esterase,Urine Negative (Negative); Mucus,Urine Few per lpf (None-Few); Nitrite,Urine Negative (Negative); PH,Urine 5.5 pH Units (5.0-8.0); Protein,Urine 30 mg/dL (Neg-Trace); RBC,Urine 0-3 per hpf (0-3); Specific Gravity,Urine 1.028 (1.010-1.025); Sperm,Urine Present (None Seen); Urobilinogen,Urine Normal (Normal)
[2020-04-30 10:57] LABS: Amphetamine Screen,Urine Positive ng/mL (Cutoff=1000); Barbiturate Screen,Urine Negative ng/mL (Cutoff=200); Benzodiazepines Screen,Urine Negative ng/mL (Cutoff=200); Cannabinoid Screen,Urine Positive ng/mL (Cutoff = 50); Cocaine Screen,Urine Positive ng/mL (Cutoff= 300); Opiate Screen,Urine Negative ng/mL (Cutoff=300); Phencyclidine Screen,Urine Negative ng/mL (Cutoff=25)
[2020-04-30 11:07] LABS: Basophils % 0.3 %; Eosinophils # 0.2 K/mcL (0.0-0.6); Eosinophils % 1.7 %; Hematocrit 40.8 % (37.5-50.1); Hemoglobin 13.8 g/dL (12.9-16.9); Immature Granulocytes % 0.2 % (0-4); Lymphocytes # 1.8 K/mcL (0.6-4.6); Lymphocytes % 17.1 %; Mean Corpuscular HGB Conc 33.8 g/dL (31.6-35.5); Mean Corpuscular Hemoglobin 29.8 pg (28.0-33.3); Mean Corpuscular Volume 88.1 fL (83.0-100.0); Mean Platelet Volume 9.8 fL (9.4-12.4); Monocytes # 0.7 K/mcL (0.0-1.3); Monocytes % 6.3 %; Neutrophils # 7.9 K/mcL (1.6-8.9); Platelet Count 381 K/mcL (140-400); Red Blood Count 4.63 M/mcL (4.19-5.50); Red Cell Distribution Width 13.2 % (11.5-14.5); Segmented Neutrophils % 74.4 %; White Blood Count 10.6 K/mcL (4.3-11.1)
[2020-04-30 11:57] LABS: Estimated Average Glucose 120 mg/dl; Hemoglobin A1C 5.8 %
[2020-04-30 12:15] LABS: Acetaminophen < 10 mcg/mL (10-20); BUN/Creatinine Ratio 23 (6-26); Blood Urea Nitrogen 20 mg/dL (6-20); Calcium 9.9 mg/dL (8.6-10.3); Carbon Dioxide 20 mEq/L (23-29); Chloride 108 mEq/L (98-107); Chol/HDL Ratio 4.6 (0-4.9); Cholesterol 245 mg/dL (< 200); Ethanol < 10 mg/dL (Less than 10); Glucose 135 mg/dL (70-105); HDL Cholesterol 53 mg/dL (40-59); LDL Cholesterol,Calculated 177 mg/dL (< 100); Osmolality,Calculated 297 (280-300); Potassium 4.1 mEq/L (3.5-5.1); Salicylate < 2.5 mg/dL (15.0-30.0); Sodium 141 mEq/L (136-145); Triglycerides 73 mg/dL (< 150); eGFR For African Americans > 60 (> 60); eGFR For Non-African Americans > 60 (> 60)
[2020-04-30] MEDS ORDERED: *HR* LORazepam 2 MG/ML VIAL IM ONE (12:47)
[2020-04-30] MEDS ORDERED: *HR* LORazepam 1 MG TABLET PO ONE (12:49)
[2020-04-30] MEDS ORDERED: Haloperidol Lactate 5 MG/ML VIAL IM ONE (13:35)
[2020-04-30] MEDS ORDERED: hydrOXYzine pamoate 25 MG CAPSULE PO PRN (14:30)
[2020-04-30] MEDS ORDERED: *HR* LORazepam 1 MG TABLET PO PRN ×2 (14:30→14:52)
[2020-04-30] MEDS ORDERED: Mag Hydrox/Al Hydrox/Simeth 30 ML UDC PO PRN (14:30)
[2020-04-30] MEDS ORDERED: *HR* LORazepam 2 MG/ML VIAL IM PRN ×2 (14:30→14:51)
[2020-04-30] MEDS ORDERED: QUEtiapine Fumarate 25 MG TABLET PO PRN (14:30)
[2020-04-30] MEDS ORDERED: MOM Conc 10 ML UD.LIQ PO PRN (14:30)
[2020-04-30] MEDS ORDERED: Haloperidol Lactate 5 MG/ML VIAL IM PRN (14:30)
[2020-04-30] MEDS ORDERED: Ibuprofen 400 MG TABLET PO PRN (14:30)
[2020-04-30] MEDS ORDERED: haloperidoL 5 MG TABLET PO PRN (14:30)
[2020-04-30] MEDS ORDERED: OLANZapine 10 MG TAB.RAPDIS PO PRN (14:48)
[2020-04-30] MEDS ORDERED: Ziprasidone 20 MG in Water for inj. (sterile) 1 ML IM PRN (14:50)
[2020-05-01] MEDS: Nicotine 21 MG PATCH.TD24 TD SCH ×2 (12:00→18:06)
[2020-05-01] MEDS ORDERED: hydrOXYzine pamoate 25 MG CAPSULE PO PRN (14:26)
[2020-05-01] MEDS ORDERED: tiZANidine 4 MG TABLET PO PRN (14:54)
[2020-05-01] MEDS: Pregabalin 75 MG CAPSULE PO SCH ×2 (16:09→20:35)
[2020-05-01] MEDS: Ziprasidone 80 MG CAPSULE PO SCH (16:09)
[2020-05-01] MEDS: clonazePAM 1 MG TABLET PO SCH (20:34)
[2020-05-01] MEDS ORDERED: traZODone 50 MG TABLET PO SCH (21:00)
[2020-05-02] MEDS: clonazePAM 1 MG TABLET PO SCH (08:10)
[2020-05-02] MEDS: Ziprasidone 80 MG CAPSULE PO SCH (08:10)
[2020-05-02] MEDS: Nicotine 21 MG PATCH.TD24 TD SCH (08:11)
[2020-05-02] MEDS: Pregabalin 75 MG CAPSULE PO SCH (08:11)
[2020-05-02 08:47] VITALS: BP 114/86
[2020-05-02] MEDS ORDERED: Venlafaxine XR (24 HR) 150 MG CAP.ER.24H PO SCH (09:00)
[2020-05-02] MEDS ORDERED: Venlafaxine XR (24 HR) 75 MG CAP.ER.24H PO SCH (09:00)
== END 2020-05-02 11:00 | disposition home or self-care (01) | DRG 885 ==
LOC: EMEROOARM 10:01 → 1ANU 14:10
PROVIDERS: ADMIT Psychiatry & Neurology Forensic Psychiatry; ATTEND Psychiatry & Neurology Forensic Psychiatry

== ENCOUNTER 2020-08-02 22:43 | Inpatient (IN) ==
[2020-08-02 23:47] LABS: Bacteria,Urine Moderate per hpf (None-Few); Bilirubin,Urine Negative (Negative); Blood,Urine Negative (Negative); Clarity,Urine Clear (Clear); Color,Urine Yellow (Yellow); Glucose,Urine (UA) Normal (Normal); Ketones,Urine 10 mg/dL (Negative); Leukocyte Esterase,Urine Negative (Negative); Mucus,Urine Few per lpf (None-Few); Nitrite,Urine Negative (Negative); Protein,Urine 100 mg/dL (Neg-Trace); RBC,Urine 0-3 per hpf (0-3); Specific Gravity,Urine 1.028 (1.010-1.025); Sperm,Urine Present (None Seen); Urobilinogen,Urine Normal (Normal); WBC,Urine 0-3 per hpf (0-3)
[2020-08-02 23:54] LABS: Basophils # 0.1 K/mcL (0.0-0.2); Basophils % 0.5 %; Eosinophils % 0.3 %; Hematocrit 40.4 % (37.5-50.1); Hemoglobin 13.8 g/dL (12.9-16.9); Immature Granulocytes % 0.2 % (0-4); Lymphocytes # 2.2 K/mcL (0.6-4.6); Lymphocytes % 21.6 %; Mean Corpuscular HGB Conc 34.2 g/dL (31.6-35.5); Mean Corpuscular Hemoglobin 29.3 pg (28.0-33.3); Mean Corpuscular Volume 85.8 fL (83.0-100.0); Mean Platelet Volume 10.4 fL (9.4-12.4); Monocytes # 0.9 K/mcL (0.0-1.3); Monocytes % 8.9 %; Platelet Count 411 K/mcL (140-400); Red Blood Count 4.71 M/mcL (4.19-5.50); Red Cell Distribution Width 14.3 % (11.5-14.5); Segmented Neutrophils % 68.5 %; White Blood Count 10.2 K/mcL (4.3-11.1)
[2020-08-02 23:59] LABS: Amphetamine Screen,Urine Negative ng/mL (Cutoff=1000); Barbiturate Screen,Urine Negative ng/mL (Cutoff=200); Benzodiazepines Screen,Urine Negative ng/mL (Cutoff=200); Cannabinoid Screen,Urine Negative ng/mL (Cutoff = 50); Cocaine Screen,Urine Positive ng/mL (Cutoff= 300); Opiate Screen,Urine Negative ng/mL (Cutoff=300); Phencyclidine Screen,Urine Negative ng/mL (Cutoff=25)
[2020-08-03 00:11] LABS: Acetaminophen < 10 mcg/mL (10-20); BUN/Creatinine Ratio 21 (6-26); Blood Urea Nitrogen 17 mg/dL (6-20); Calcium 9.8 mg/dL (8.6-10.3); Carbon Dioxide 25 mEq/L (23-29); Chloride 105 mEq/L (98-107); Ethanol < 10 mg/dL (Less than 10); Glucose 137 mg/dL (70-105); Osmolality,Calculated 296 (280-300); Potassium 4.1 mEq/L (3.5-5.1); Salicylate < 2.5 mg/dL (15.0-30.0); Sodium 141 mEq/L (136-145); eGFR For African Americans > 60 (> 60); eGFR For Non-African Americans > 60 (> 60)
[2020-08-03] MEDS ORDERED: Mag Hydrox/Al Hydrox/Simeth 30 ML UDC PO PRN (01:51)
[2020-08-03] MEDS ORDERED: haloperidoL 5 MG TABLET PO PRN (01:51)
[2020-08-03] MEDS ORDERED: traZODone 50 MG TABLET PO PRN (01:51)
[2020-08-03] MEDS ORDERED: Acetaminophen 325 MG TABLET PO PRN (01:51)
[2020-08-03] MEDS ORDERED: MOM Conc 10 ML UD.LIQ PO PRN (01:51)
[2020-08-03] MEDS ORDERED: hydrOXYzine pamoate 25 MG CAPSULE PO PRN (01:51)
[2020-08-03] MEDS ORDERED: *HR* LORazepam 1 MG TABLET PO PRN (01:51)
[2020-08-03 02:08] LABS: Creatine Kinase 148 Units/L (30-223)
[2020-08-03] MEDS: Haloperidol Lactate 5 MG/ML VIAL IM PRN ×2 (02:23→09:46)
[2020-08-03] MEDS: *HR* LORazepam 2 MG/ML VIAL IM PRN ×2 (02:24→09:45)
[2020-08-03] MEDS: Nicotine 21 MG PATCH.TD24 TD SCH (08:14)
[2020-08-03] MEDS: clonazePAM 1 MG TABLET PO PRN (20:04)
[2020-08-04] MEDS ORDERED: PALIPERIDONE PALMITATE 234 MG/1.5 ML SYRINGE IM ONE (09:00)
[2020-08-04] MEDS ORDERED: Celecoxib 200 MG CAPSULE PO SCH (09:00)
[2020-08-04] MEDS: Nicotine 21 MG PATCH.TD24 TD SCH (09:21)
[2020-08-04] MEDS: clonazePAM 1 MG TABLET PO PRN (09:23)
[2020-08-04 10:09] VITALS: BP 131/82
== END 2020-08-04 10:50 | disposition home or self-care (01) | DRG 885 ==
LOC: EMEROOARM 22:43 → 1ANU 08-03 01:09
PROVIDERS: ADMIT Psychiatry & Neurology Psychiatry; ATTEND Psychiatry & Neurology Psychiatry

== ENCOUNTER 2020-10-28 10:14 | Inpatient (IN) ==
[2020-10-28] MEDS ORDERED: 0.9 % Sodium Chloride 1,000 ML IVC ONE (10:31)
[2020-10-28 10:59] LABS: Basophils # 0.1 K/mcL (0.0-0.2); Basophils % 1.1 %; Eosinophils # 0.1 K/mcL (0.0-0.6); Eosinophils % 1.5 %; Hematocrit 37.3 % (37.5-50.1); Hemoglobin 12.3 g/dL (12.9-16.9); Immature Granulocytes % 0.1 % (0-4); Lymphocytes # 1.9 K/mcL (0.6-4.6); Lymphocytes % 25.5 %; Mean Corpuscular Hemoglobin 28.7 pg (28.0-33.3); Mean Corpuscular Volume 87.1 fL (83.0-100.0); Mean Platelet Volume 10.1 fL (9.4-12.4); Monocytes # 0.8 K/mcL (0.0-1.3); Monocytes % 10.4 %; Neutrophils # 4.5 K/mcL (1.6-8.9); Platelet Count 278 K/mcL (140-400); Red Blood Count 4.28 M/mcL (4.19-5.50); Red Cell Distribution Width 13.7 % (11.5-14.5); Segmented Neutrophils % 61.4 %; White Blood Count 7.3 K/mcL (4.3-11.1)
[2020-10-28 11:55] LABS: Bilirubin,Urine Negative (Negative); Blood,Urine Negative (Negative); Clarity,Urine Clear (Clear); Color,Urine Yellow (Yellow); Glucose,Urine (UA) Normal (Normal); Ketones,Urine 40 mg/dL (Negative); Leukocyte Esterase,Urine Negative (Negative); Nitrite,Urine Negative (Negative); PH,Urine 5.5 pH Units (5.0-8.0); Protein,Urine Trace mg/dL (Neg-Trace); Specific Gravity,Urine > 1.030 (1.010-1.025); Urobilinogen,Urine Normal (Normal)
[2020-10-28 12:23] LABS: Amphetamine Screen,Urine Positive ng/mL (Cutoff=1000); Barbiturate Screen,Urine Negative ng/mL (Cutoff=200); Benzodiazepines Screen,Urine Positive ng/mL (Cutoff=200); Cannabinoid Screen,Urine Negative ng/mL (Cutoff = 50); Cocaine Screen,Urine Positive ng/mL (Cutoff= 300); Opiate Screen,Urine Negative ng/mL (Cutoff=300); Phencyclidine Screen,Urine Negative ng/mL (Cutoff=25)
[2020-10-28 12:51] LABS: Alanine Aminotransferase 11 Units/L (7-52); Albumin 3.9 g/dL (3.5-5.7); Alkaline Phosphatase 62 Units/L (34-104); Aspartate Amino Transferase 15 Units/L (13-39); BUN/Creatinine Ratio 31 (6-26); Bilirubin,Direct 0.1 mg/dL (0.0-0.2); Bilirubin,Indirect 0.4 mg/dL (0.0-1.0); Bilirubin,Total 0.5 mg/dL (0.3-1.0); Blood Urea Nitrogen 23 mg/dL (6-20); Calcium 8.1 mg/dL (8.6-10.3); Carbon Dioxide 22 mEq/L (23-29); Chloride 110 mEq/L (98-107); Creatine Kinase 180 Units/L (30-223); Ethanol < 10 mg/dL (Less than 10); Glucose 86 mg/dL (70-105); Osmolality,Calculated 293 (280-300); Potassium 3.6 mEq/L (3.5-5.1); Sodium 140 mEq/L (136-145); Total Protein 5.9 g/dL (6.4-8.9); eGFR For African Americans > 60 (> 60); eGFR For Non-African Americans > 60 (> 60)
[2020-10-28] MEDS ORDERED: Naloxone 0.4 MG/ML INJ IVP PRN (14:05)
[2020-10-28] MEDS ORDERED: Ondansetron 4 MG/2 ML VIAL IVP PRN (14:05)
[2020-10-28] MEDS ORDERED: *HR* Dextrose 50 % in Water (Vial) 50 ML VIAL IVP PRN (14:28)
[2020-10-28] MEDS ORDERED: Dextrose Gel 15 GM/37.5 ML TUBE PO PRN ×2 (14:28)
[2020-10-28] MEDS ORDERED: D5% in Water 1,000 ML IVC PRN (14:28)
[2020-10-28] MEDS ORDERED: Ipratropium/Albuterol Neb 3 ML IH PRN (14:30)
[2020-10-28] MEDS ORDERED: *HR* LORazepam 2 MG/ML VIAL IVP PRN ×2 (14:36→14:37)
[2020-10-28] MEDS: Clindamycin 300 MG/50 ML 300 MG/50 ML IV.SOLN IVPB SCH (16:31)
[2020-10-28] MEDS: Insulin LISPRO 300 UNITS/3 ML VIAL SUBQ SCH (16:36)
[2020-10-28] MEDS: *HR* LORazepam 2 MG/ML VIAL IVP PRN (18:05)
[2020-10-29] MEDS: Clindamycin 300 MG/50 ML 300 MG/50 ML IV.SOLN IVPB SCH ×4 (00:30→23:52)
[2020-10-29] MEDS: Insulin LISPRO 300 UNITS/3 ML VIAL SUBQ SCH ×4 (00:30→18:00)
[2020-10-29 05:08] LABS: Basophils # 0.1 K/mcL (0.0-0.2); Basophils % 0.8 %; Eosinophils # 0.3 K/mcL (0.0-0.6); Eosinophils % 4.7 %; Hematocrit 37.1 % (37.5-50.1); Hemoglobin 12.3 g/dL (12.9-16.9); Immature Granulocytes % 0.2 % (0-4); Lymphocytes # 1.6 K/mcL (0.6-4.6); Lymphocytes % 24.7 %; Mean Corpuscular HGB Conc 33.2 g/dL (31.6-35.5); Mean Corpuscular Hemoglobin 28.8 pg (28.0-33.3); Mean Corpuscular Volume 86.9 fL (83.0-100.0); Mean Platelet Volume 10.1 fL (9.4-12.4); Monocytes # 0.5 K/mcL (0.0-1.3); Monocytes % 7.5 %; Neutrophils # 4.1 K/mcL (1.6-8.9); Nucleated Red Blood Cells 0.6 /100 WBC (0); Platelet Count 256 K/mcL (140-400); Red Blood Count 4.27 M/mcL (4.19-5.50); Red Cell Distribution Width 13.8 % (11.5-14.5); Segmented Neutrophils % 62.1 %; White Blood Count 6.7 K/mcL (4.3-11.1)
[2020-10-29 05:16] LABS: INR 1.3; Prothrombin Time 14.8 Seconds (9.4-12.1)
[2020-10-29 05:19] LABS: Activated Partial Thrombo Time 32.5 Seconds (26.0-36.0)
[2020-10-29 05:27] LABS: BUN/Creatinine Ratio 27 (6-26); Blood Urea Nitrogen 15 mg/dL (6-20); Calcium 8.4 mg/dL (8.6-10.3); Carbon Dioxide 20 mEq/L (23-29); Chloride 110 mEq/L (98-107); Creatine Kinase 165 Units/L (30-223); Glucose 60 mg/dL (70-105); Magnesium 1.9 mg/dL (1.6-2.6); Osmolality,Calculated 289 (280-300); Phosphorous 2.1 mg/dL (2.7-4.5); Potassium 3.5 mEq/L (3.5-5.1); Sodium 140 mEq/L (136-145); eGFR For African Americans > 60 (> 60); eGFR For Non-African Americans > 60 (> 60)
[2020-10-29] MEDS ORDERED: traZODone 50 MG TABLET PO PRN (07:36)
[2020-10-29] MEDS ORDERED: SELENIUM SULFIDE TP PRN (07:36)
[2020-10-29] MEDS: Venlafaxine XR (24 HR) 75 MG CAP.ER.24H PO SCH (08:49)
[2020-10-29] MEDS: Pregabalin 75 MG CAPSULE PO SCH (08:49)
[2020-10-29] MEDS: Venlafaxine XR (24 HR) 150 MG CAP.ER.24H PO SCH (08:49)
[2020-10-29] MEDS: clonazePAM 1 MG TABLET PO SCH ×2 (08:49→20:36)
[2020-10-29] MEDS: Lumateperone Tosylate [Caplyta] 42 MG Capsule PO SCH (08:50)
[2020-10-29] MEDS: *HR* LORazepam 2 MG/ML VIAL IVP PRN (09:05)
[2020-10-29] MEDS ORDERED: Tdap (Boostrix) Vaccine 0.5 ML SYRINGE IM ONE (11:24)
[2020-10-29] MEDS: Acetaminophen 325 MG TABLET PO PRN (19:34)
[2020-10-30] MEDS: Insulin LISPRO 300 UNITS/3 ML VIAL SUBQ SCH ×4 (00:50→17:22)
[2020-10-30] MEDS: Acetaminophen 325 MG TABLET PO PRN ×3 (03:45→23:32)
[2020-10-30] MEDS: Pregabalin 75 MG CAPSULE PO SCH (09:05)
[2020-10-30] MEDS: clonazePAM 1 MG TABLET PO SCH ×2 (09:05→21:32)
[2020-10-30] MEDS: Venlafaxine XR (24 HR) 150 MG CAP.ER.24H PO SCH (09:05)
[2020-10-30] MEDS: Venlafaxine XR (24 HR) 75 MG CAP.ER.24H PO SCH (09:05)
[2020-10-30] MEDS: Lumateperone Tosylate [Caplyta] 42 MG Capsule PO SCH (09:06)
[2020-10-30] MEDS: Clindamycin 300 MG/50 ML 300 MG/50 ML IV.SOLN IVPB SCH (09:06)
[2020-10-30] MEDS: *HR* LORazepam 2 MG/ML VIAL IVP PRN (09:12)
[2020-10-30] MEDS: hydrOXYzine pamoate 25 MG CAPSULE PO PRN (17:18)
[2020-10-31] MEDS: Insulin LISPRO 300 UNITS/3 ML VIAL SUBQ SCH ×3 (00:44→11:25)
[2020-10-31 05:03] VITALS: BP 99/70
[2020-10-31] MEDS: hydrOXYzine pamoate 25 MG CAPSULE PO PRN (08:48)
[2020-10-31] MEDS: clonazePAM 1 MG TABLET PO SCH (08:48)
[2020-10-31] MEDS: Pregabalin 75 MG CAPSULE PO SCH (08:49)
[2020-10-31] MEDS: Lumateperone Tosylate [Caplyta] 42 MG Capsule PO SCH (08:49)
[2020-10-31] MEDS: Venlafaxine XR (24 HR) 75 MG CAP.ER.24H PO SCH (08:49)
[2020-10-31] MEDS: Venlafaxine XR (24 HR) 150 MG CAP.ER.24H PO SCH (08:49)
[2020-10-31] MEDS ORDERED: Budesonide/Formoterol 80/4.5 1 PUFF INH IH SCH (10:00)
[2020-10-31 10:08] LABS: Magnesium 1.5 mg/dL (1.6-2.6)
[2020-10-31 10:32] LABS: BUN/Creatinine Ratio 24 (6-26); Blood Urea Nitrogen 16 mg/dL (6-20); Calcium 9.2 mg/dL (8.6-10.3); Carbon Dioxide 27 mEq/L (23-29); Chloride 107 mEq/L (98-107); Glucose 110 mg/dL (70-105); Osmolality,Calculated 292 (280-300); Sodium 140 mEq/L (136-145); eGFR For African Americans > 60 (> 60); eGFR For Non-African Americans > 60 (> 60)
[2020-10-31] MEDS ORDERED: Magnesium Oxide 400 MG TABLET PO ONE (11:59)
== END 2020-10-31 16:13 | DRG 917 ==
LOC: 3BNU 10:14 → EMEROOARM 10:14 → 3BNU 14:45 → SUATTDRO 10-29 16:07
PROVIDERS: ADMIT Internal Medicine; ATTEND Internal Medicine

== ENCOUNTER 2020-10-31 16:35 | Inpatient (IN) ==
[2020-10-31] MEDS ORDERED: hydrOXYzine pamoate 25 MG CAPSULE PO PRN (17:39)
[2020-10-31] MEDS ORDERED: Haloperidol Lactate 5 MG/ML VIAL IM PRN (17:39)
[2020-10-31] MEDS ORDERED: traZODone 50 MG TABLET PO PRN (17:39)
[2020-10-31] MEDS ORDERED: haloperidoL 5 MG TABLET PO PRN (17:39)
[2020-10-31] MEDS ORDERED: *HR* LORazepam 2 MG/ML VIAL IM PRN (17:39)
[2020-10-31] MEDS ORDERED: *HR* LORazepam 1 MG TABLET PO PRN (17:39)
[2020-10-31] MEDS ORDERED: Acetaminophen 325 MG TABLET PO PRN (17:39)
[2020-10-31] MEDS ORDERED: Celecoxib 200 MG CAPSULE PO PRN (17:48)
[2020-10-31] MEDS ORDERED: Patient Taking Own Medication 1 EACH TP PRN (17:48)
[2020-10-31] MEDS: clonazePAM 1 MG TABLET PO SCH (22:09)
[2020-10-31] MEDS: Budesonide/Formoterol 80/4.5 1 PUFF INH IH SCH (22:13)
[2020-10-31] MEDS: Triamcinolone Acet 0.1% CRM 15 GM TUBE TP SCH (22:14)
[2020-11-01] MEDS ORDERED: Pregabalin 50 MG CAPSULE PO SCH (09:00)
[2020-11-01] MEDS ORDERED: Patient Taking Own Medication 1 EACH PO SCH (09:00)
[2020-11-01] MEDS: Budesonide/Formoterol 80/4.5 1 PUFF INH IH SCH ×2 (11:55→20:57)
[2020-11-01] MEDS: Venlafaxine XR (24 HR) 75 MG CAP.ER.24H PO SCH (11:57)
[2020-11-01] MEDS: clonazePAM 1 MG TABLET PO SCH ×2 (11:57→20:52)
[2020-11-01] MEDS: Venlafaxine XR (24 HR) 150 MG CAP.ER.24H PO SCH (11:57)
[2020-11-01] MEDS: Patient Taking Own Medication 1 EACH PO SCH (11:59)
[2020-11-01] MEDS: Triamcinolone Acet 0.1% CRM 15 GM TUBE TP SCH ×2 (11:59→20:57)
[2020-11-01] MEDS: Ketoconazole 2% CRM 15 GM TUBE TP SCH (11:59)
[2020-11-01] MEDS: Pregabalin 50 MG CAPSULE PO SCH ×3 (14:11→20:53)
[2020-11-01] MEDS: hydrOXYzine pamoate 25 MG CAPSULE PO PRN (17:53)
[2020-11-01] MEDS ORDERED: Lumateperone Tosylate [Caplyta] 42 MG PO SCH (21:00)
[2020-11-02] MEDS: Budesonide/Formoterol 80/4.5 1 PUFF INH IH SCH ×2 (09:07→20:37)
[2020-11-02] MEDS: Pregabalin 50 MG CAPSULE PO SCH ×4 (09:08→20:34)
[2020-11-02] MEDS: clonazePAM 1 MG TABLET PO SCH ×2 (09:08→20:34)
[2020-11-02] MEDS: Venlafaxine XR (24 HR) 75 MG CAP.ER.24H PO SCH (09:09)
[2020-11-02] MEDS: Ketoconazole 2% CRM 15 GM TUBE TP SCH (09:09)
[2020-11-02] MEDS: Venlafaxine XR (24 HR) 150 MG CAP.ER.24H PO SCH (09:09)
[2020-11-02] MEDS: Triamcinolone Acet 0.1% CRM 15 GM TUBE TP SCH ×2 (09:09→20:37)
[2020-11-02] MEDS: Patient Taking Own Medication 1 EACH PO SCH (14:05)
[2020-11-02] MEDS ORDERED: Ibuprofen 400 MG TABLET PO PRN (17:01)
[2020-11-02] MEDS: hydrOXYzine pamoate 25 MG CAPSULE PO PRN (17:20)
[2020-11-02] MEDS: traZODone 50 MG TABLET PO PRN (20:34)
[2020-11-02] MEDS: Lumateperone Tosylate [Caplyta] 42 MG Capsule PO SCH (20:34)
[2020-11-03] MEDS: clonazePAM 1 MG TABLET PO SCH ×2 (09:09→20:24)
[2020-11-03] MEDS: Pregabalin 50 MG CAPSULE PO SCH ×4 (09:09→20:24)
[2020-11-03] MEDS: Venlafaxine XR (24 HR) 75 MG CAP.ER.24H PO SCH (09:10)
[2020-11-03] MEDS: Venlafaxine XR (24 HR) 150 MG CAP.ER.24H PO SCH (09:10)
[2020-11-03] MEDS: Triamcinolone Acet 0.1% CRM 15 GM TUBE TP SCH ×2 (13:34→19:45)
[2020-11-03] MEDS: Ketoconazole 2% CRM 15 GM TUBE TP SCH (13:34)
[2020-11-03] MEDS: Budesonide/Formoterol 80/4.5 1 PUFF INH IH SCH ×2 (13:35→20:24)
[2020-11-03] MEDS: Patient Taking Own Medication 1 EACH PO SCH (13:35)
[2020-11-03] MEDS: traZODone 50 MG TABLET PO PRN (20:24)
[2020-11-03] MEDS: Lumateperone Tosylate [Caplyta] 42 MG Capsule PO SCH (20:24)
[2020-11-03] MEDS: hydrOXYzine pamoate 25 MG CAPSULE PO PRN (20:24)
[2020-11-04] MEDS: clonazePAM 1 MG TABLET PO SCH (08:48)
[2020-11-04] MEDS: Pregabalin 50 MG CAPSULE PO SCH (08:49)
[2020-11-04] MEDS: Venlafaxine XR (24 HR) 75 MG CAP.ER.24H PO SCH (08:49)
[2020-11-04] MEDS: Venlafaxine XR (24 HR) 150 MG CAP.ER.24H PO SCH (08:49)
[2020-11-04] MEDS: Patient Taking Own Medication 1 EACH PO SCH (08:51)
[2020-11-04] MEDS: Ketoconazole 2% CRM 15 GM TUBE TP SCH (08:51)
[2020-11-04] MEDS: Triamcinolone Acet 0.1% CRM 15 GM TUBE TP SCH (08:51)
[2020-11-04] MEDS: Budesonide/Formoterol 80/4.5 1 PUFF INH IH SCH (08:52)
[2020-11-04 09:28] VITALS: BP 106/74
== END 2020-11-04 11:30 | disposition home or self-care (01) | DRG 885 ==
LOC: 1ANU 16:35
PROVIDERS: ADMIT Psychiatry & Neurology Psychiatry; ATTEND Psychiatry & Neurology Psychiatry